=== PATIENT | female | born 1940 | race Caucasian/White ===

== ENCOUNTER 2018-06-25 09:04 | Day surgery (SDC) | payer MEDICARE ==
[~2018-06-25] VITALS: Ht 167.6 cm; Wt 99.7 kg
[~2018-06-25 09:04] MED LIST: ACET-1131; ACYC400T PO; ALLO300T2 PO; AMIO200T40 PO; ANAS1TAB PO; APIX5TAB3 PO; ASCO10007 PO; ASPI-1265 PO; ATRNS; CALC-793 PO; CLOP75TA35 PO; CYAN100097 PO; DIGO125T97 PO; FENO145T36 PO; FEXO-62 PO; FISHOIL PO; FLAX100032 PO; FLUO15CR TOP; FLUT100D2 INH; FLUT16SP26 BOTHNARES; FURO-150 PO; GLUC100017 PO; HYDR-4069 PO; LEVO100T PO; LOSA1TAB39 PO; MAGN400T6 PO; METR500T4 PO; MULT-687 PO; NIAC250C2 PO; NITR0.4T SL; PANT-47 PO; POTA8TAB8 PO; PROP10TA10 PO; ROSU20TA30; SELE200T25 PO; SITA100T11 PO; TRAM50TA2 PO; TURM500C3 PO; UBID10CA9 PO; VERA240C2 PO; folic acid PO; pro air
[2018-06-25] MEDS ORDERED: normal saline 1000ml 1,000 ML IV PRN (09:35)
[2018-06-25 10:45] LABS: ALBUMIN 3.8 G/DL (3.4-5.0); ANION GAP 11 (8-16); BLOOD UREA NITROGEN 56 MG/DL (7-18); BUN/CREATININE RATIO 23.4 (6.6-38.0); CALCIUM 9.4 MG/DL (8.5-10.1); CHLORIDE 103 MMOL/L (99-107); CREATININE 2.39 MG/DL (0.40-0.90); GLUCOSE 127 MG/DL (70-104); POTASSIUM 4.7 MMOL/L (3.5-5.1); SODIUM 141 MMOL/L (135-145); TOTAL CARBON DIOXIDE 27.4 MMOL/L (24-32); eGFR 20 ML/MIN
[2018-06-25 12:40] VITALS: BP 169/64
== END 2018-06-25 12:03 | disposition home or self-care (01) ==
LOC: SSTAY O 09:04
PROVIDERS: ATTEND Radiology Vascular & Interventional Radiology
DX: I70.1 Atherosclerosis of renal artery (principal); Z53.8 Procedure and treatment not carried out for other reasons; I48.92 Unspecified atrial flutter; I25.10 Atherosclerotic heart disease of native coronary artery without angina pectoris; I11.0 Hypertensive heart disease with heart failure; I50.9 Heart failure, unspecified; E11.9 Type 2 diabetes mellitus without complications; E78.5 Hyperlipidemia, unspecified; G47.33 Obstructive sleep apnea (adult) (pediatric); M85.88 Other specified disorders of bone density and structure, other site; E66.9 Obesity, unspecified; M19.90 Unspecified osteoarthritis, unspecified site; K21.9 Gastro-esophageal reflux disease without esophagitis; J44.9 Chronic obstructive pulmonary disease, unspecified; E03.9 Hypothyroidism, unspecified; Z96.653 Presence of artificial knee joint, bilateral; Z90.12 Acquired absence of left breast and nipple; Z68.35 Body mass index [BMI] 35.0-35.9, adult; Z85.3 Personal history of malignant neoplasm of breast; Z85.038 Personal history of other malignant neoplasm of large intestine; Z90.89 Acquired absence of other organs; Z90.710 Acquired absence of both cervix and uterus; Z90.49 Acquired absence of other specified parts of digestive tract; Z88.0 Allergy status to penicillin; Z79.891 Long term (current) use of opiate analgesic; Z79.84 Long term (current) use of oral hypoglycemic drugs; Z79.2 Long term (current) use of antibiotics; Z95.1 Presence of aortocoronary bypass graft; Z86.69 Personal history of other diseases of the nervous system and sense organs; Z95.5 Presence of coronary angioplasty implant and graft; Z87.891 Personal history of nicotine dependence; Z88.8 Allergy status to other drugs, medicaments and biological substances; Z79.899 Other long term (current) drug therapy; Z98.890 Other specified postprocedural states; Z82.49 Family history of ischemic heart disease and other diseases of the circulatory system; Z83.49 Family history of other endocrine, nutritional and metabolic diseases
CPT/HCPCS: 36415; 80048; J7030

== ENCOUNTER 2018-08-25 12:13 | Inpatient (IN) | payer MEDICARE ==
[~2018-08-25] VITALS: Ht 165.1 cm; Wt 97.4 kg
[2018-08-25 12:52] LABS: BASOPHILS % (AUTO) 0.4 % (0-1); EOSINOPHILS # (AUTO) 0.2 X10'3 (0-0.9); EOSINOPHILS % (AUTO) 2.5 % (0-6); HEMATOCRIT 24.7 % (35.0-45.0); HEMOGLOBIN 7.6 g/dl (12.0-16.0); LYMPHOCYTES # (AUTO) 0.7 X10'3 (1.1-4.8); LYMPHOCYTES % (AUTO) 9.8 % (21-51); MEAN CORPUSCULAR HEMOGLOBIN 24.8 PG (27.0-31.0); MEAN CORPUSCULAR HGB CONC 30.7 % (33.0-36.5); MEAN CORPUSCULAR VOLUME 80.7 FL (78-98); MEAN PLATELET VOLUME 8.2 FL (7.4-10.4); MONOCYTES # (AUTO) 0.7 X10'3 (0-0.9); MONOCYTES % (AUTO) 10.3 % (2-12); NEUTROPHILS # (AUTO) 5.4 X10'3 (1.8-7.7); PLATELET COUNT 252 X10'3 (140-440); RED BLOOD COUNT 3.07 X10'6 (4.20-5.60); RED CELL DISTRIBUTION WIDTH 19.4 % (11.5-14.5)
[2018-08-25 13:00] LABS: INR 1.4 INR; PARTIAL THROMBOPLASTIN TIME 30 SECONDS (22-32); PROTHROMBIN TIME 13.8 SECONDS (9.0-12.0)
[2018-08-25 13:02] LABS: ALANINE AMINOTRANSFERASE 38 U/L (12-78); ALBUMIN 3.9 G/DL (3.4-5.0); ALBUMIN/GLOBULIN RATIO 1.1 (1.1-1.5); ALKALINE PHOSPHATASE 27 IU/L (46-116); ANION GAP 14 (8-16); ASPARTATE AMINO TRANSFERASE 52 U/L (10-37); BILIRUBIN,TOTAL 0.4 MG/DL (0.1-1.0); BLOOD UREA NITROGEN 65 MG/DL (7-18); BUN/CREATININE RATIO 20.8 (6.6-38.0); CALCIUM 9.2 MG/DL (8.5-10.1); CHLORIDE 101 MMOL/L (99-107); CREATININE 3.12 MG/DL (0.40-0.90); GLUCOSE 203 MG/DL (70-104); POTASSIUM 5.2 MMOL/L (3.5-5.1); SODIUM 138 MMOL/L (135-145); TOTAL CARBON DIOXIDE 23.1 MMOL/L (24-32); TOTAL PROTEIN 7.4 G/DL (6.4-8.2); eGFR 15 ML/MIN
[2018-08-25] MEDS ORDERED: APIX5TAB3 PO (16:50)
[2018-08-25] MEDS ORDERED: FAMO20TA10 PO (16:50)
[2018-08-25] MEDS ORDERED: INSU100V9 SQ (16:50)
[2018-08-25] MEDS ORDERED: magnesium hydroxide 30ml (MOM) UD suspension PO PRN (17:00)
[2018-08-25] MEDS ORDERED: ondansetron/PF 4mg/2ml inj IV PRN (17:00)
[2018-08-25] MEDS ORDERED: digoxin 125mcg (0.125mg) tablet PO SCH (17:00)
[2018-08-25] MEDS ORDERED: morphine 2 MG/ML inj. syringe IV PRN ×2 (17:00)
[2018-08-25] MEDS ORDERED: propranolol 10mg tablet PO PRN (17:00)
[2018-08-25] MEDS ORDERED: mag hydrox/Alum hydrox/simeth 30ml oral suspension PO PRN (17:00)
[2018-08-25 17:30] LABS: HEMOGLOBIN A1C 5.9 % (4.5-6.2)
[2018-08-25] MEDS: fenofibrate 145mg tablet PO SCH (18:46)
[2018-08-25] MEDS: potassium chloride 8mEq ER tablet PO SCH (20:00)
[2018-08-25] MEDS: BUDESONIDE 0.25 MG/2 ML AMPUL.NEB IH SCH (20:00)
[2018-08-25] MEDS ORDERED: UBIDECARENONE 100 MG PO SCH (20:00)
[2018-08-25] MEDS: hydrALAZINE 25 MG tablet PO SCH (20:26)
[2018-08-25] MEDS: famotidine 20mg tablet PO SCH (20:26)
[2018-08-25] MEDS: apixaban 5mg tablet PO SCH (20:26)
[2018-08-25] MEDS: magnesium oxide 400mg tablet PO SCH (20:26)
[2018-08-25] MEDS: verapamil SR 120mg (sust. release) tab PO SCH (20:27)
[2018-08-25] MEDS: allopurinol 100mg tablet PO SCH (20:28)
[2018-08-25] MEDS ORDERED: INSULIN GLARGINE HUM REC ANLOG 100 UNIT SQ SCH (21:00)
[2018-08-25] MEDS ORDERED: diphenhydrAMINE 25mg capsule PO ONE (22:55)
[2018-08-25] MEDS: acetaminophen 325mg tablet PO PRN (23:04)
[2018-08-26 00:57] LABS: BASOPHILS % (AUTO) 0.5 % (0-1); EOSINOPHILS # (AUTO) 0.1 X10'3 (0-0.9); EOSINOPHILS % (AUTO) 1.3 % (0-6); HEMATOCRIT 24.8 % (35.0-45.0); HEMOGLOBIN 7.8 g/dl (12.0-16.0); LYMPHOCYTES # (AUTO) 0.6 X10'3 (1.1-4.8); MEAN CORPUSCULAR HEMOGLOBIN 25.7 PG (27.0-31.0); MEAN CORPUSCULAR HGB CONC 31.6 % (33.0-36.5); MEAN CORPUSCULAR VOLUME 81.4 FL (78-98); MEAN PLATELET VOLUME 8.2 FL (7.4-10.4); MONOCYTES # (AUTO) 0.8 X10'3 (0-0.9); MONOCYTES % (AUTO) 10.6 % (2-12); NEUTROPHILS # (AUTO) 6.5 X10'3 (1.8-7.7); NEUTROPHILS % (AUTO) 79.6 % (42-75); PLATELET COUNT 236 X10'3 (140-440); RED BLOOD COUNT 3.05 X10'6 (4.20-5.60); RED CELL DISTRIBUTION WIDTH 18.5 % (11.5-14.5)
[2018-08-26 01:14] LABS: ALBUMIN 3.8 G/DL (3.4-5.0); ANION GAP 11 (8-16); BLOOD UREA NITROGEN 63 MG/DL (7-18); BUN/CREATININE RATIO 20.8 (6.6-38.0); CALCIUM 9.3 MG/DL (8.5-10.1); CHLORIDE 102 MMOL/L (99-107); CHOL/HDL RATIO 4.3 (0.00-4.99); CHOLESTEROL 102 MG/DL (0-200); CREATININE 3.03 MG/DL (0.40-0.90); GLUCOSE 221 MG/DL (70-104); HDL CHOLESTEROL 24 MG/DL (35-60); LDL CHOLESTEROL 58 MG/DL (50-100); POTASSIUM 4.7 MMOL/L (3.5-5.1); SODIUM 138 MMOL/L (135-145); TOTAL CARBON DIOXIDE 24.9 MMOL/L (24-32); TRIGLYCERIDES 112 MG/DL (20-135); eGFR 15 ML/MIN
[2018-08-26 05:06] VITALS: BP 186/49
[2018-08-26] MEDS: BUDESONIDE 0.25 MG/2 ML AMPUL.NEB IH SCH ×2 (07:30→19:53)
[2018-08-26] MEDS ORDERED: GLUCOSAMINE SULFATE 1500 MG PO SCH (08:00)
[2018-08-26] MEDS ORDERED: SELENOMETHIONINE 200 MCG PO SCH (08:00)
[2018-08-26] MEDS ORDERED: FLAXSEED OIL 2400 MG PO SCH (08:00)
[2018-08-26] MEDS: atorvastatin 20mg tablet PO SCH (08:04)
[2018-08-26] MEDS: cyanocobalamin 500mcg tablet PO SCH (08:04)
[2018-08-26] MEDS: verapamil SR 120mg (sust. release) tab PO SCH ×2 (08:05→20:08)
[2018-08-26] MEDS: magnesium oxide 400mg tablet PO SCH ×2 (08:05→20:08)
[2018-08-26] MEDS: famotidine 20mg tablet PO SCH ×2 (08:05→20:08)
[2018-08-26] MEDS: cetirizine 10mg tablet PO SCH (08:05)
[2018-08-26] MEDS: folic acid 1mg tablet PO SCH (08:05)
[2018-08-26] MEDS: apixaban 5mg tablet PO SCH ×2 (08:06→20:08)
[2018-08-26] MEDS: potassium chloride 8mEq ER tablet PO SCH ×2 (08:06→20:08)
[2018-08-26] MEDS: clopidogrel 75mg tablet PO SCH (08:06)
[2018-08-26] MEDS: levoTHYROXINE 100mcg tablet PO SCH (08:07)
[2018-08-26] MEDS: allopurinol 100mg tablet PO SCH ×2 (08:07→20:08)
[2018-08-26] MEDS: hydrALAZINE 25 MG tablet PO SCH ×3 (08:07→20:08)
[2018-08-26] MEDS: amiodarone 200mg tablet PO SCH (08:08)
[2018-08-26] MEDS: anastrozole 1 MG tablet PO SCH (08:09)
[2018-08-26] MEDS: calcium carbonate/vitamin D3 tablet PO SCH (08:11)
[2018-08-26 08:42] VITALS: BP 198/60
[2018-08-26] MEDS: HYDROcodone/acetaminophen 5mg/325mg tablet PO PRN (10:07)
[2018-08-26] MEDS: furosemide 40mg/4ml inj IV SCH (10:50)
[2018-08-26 11:00] VITALS: BP 179/46
[2018-08-26] MEDS ORDERED: diphenhydrAMINE 25mg capsule PO PRN (12:45)
[2018-08-26 15:00] VITALS: BP 179/43
[2018-08-26 19:00] VITALS: BP 174/47
[2018-08-26 23:00] VITALS: BP 163/34
[2018-08-27] VITALS (17 sets, daily range): BP systolic 112–189; BP diastolic 40–61
[2018-08-27 06:11] LABS: BASOPHILS % (AUTO) 0.3 % (0-1); EOSINOPHILS # (AUTO) 0.2 X10'3 (0-0.9); LYMPHOCYTES # (AUTO) 0.7 X10'3 (1.1-4.8); LYMPHOCYTES % (AUTO) 13.7 % (21-51); MEAN CORPUSCULAR HGB CONC 30.8 % (33.0-36.5); MEAN CORPUSCULAR VOLUME 81.2 FL (78-98); MEAN PLATELET VOLUME 8.6 FL (7.4-10.4); MONOCYTES # (AUTO) 0.7 X10'3 (0-0.9); MONOCYTES % (AUTO) 12.5 % (2-12); NEUTROPHILS # (AUTO) 3.8 X10'3 (1.8-7.7); NEUTROPHILS % (AUTO) 70.5 % (42-75); PLATELET COUNT 200 X10'3 (140-440); RED BLOOD COUNT 2.65 X10'6 (4.20-5.60); RED CELL DISTRIBUTION WIDTH 18.8 % (11.5-14.5); WHITE BLOOD COUNT 5.4 X10'3 (4.5-11.0)
[2018-08-27 06:24] LABS: ALBUMIN 3.3 G/DL (3.4-5.0); ANION GAP 12 (8-16); BLOOD UREA NITROGEN 60 MG/DL (7-18); BUN/CREATININE RATIO 23.1 (6.6-38.0); CALCIUM 8.9 MG/DL (8.5-10.1); CHLORIDE 103 MMOL/L (99-107); GLUCOSE 137 MG/DL (70-104); POTASSIUM 4.5 MMOL/L (3.5-5.1); SODIUM 139 MMOL/L (135-145); TOTAL CARBON DIOXIDE 23.8 MMOL/L (24-32); eGFR 18 ML/MIN
[2018-08-27 06:34] LABS: HEMATOCRIT 21.5 % (35.0-45.0); HEMOGLOBIN 6.6 g/dl (12.0-16.0)
[2018-08-27] MEDS: fenofibrate 145mg tablet PO SCH (08:22)
[2018-08-27] MEDS: clopidogrel 75mg tablet PO SCH (08:22)
[2018-08-27] MEDS: furosemide 40mg/4ml inj IV SCH (08:22)
[2018-08-27] MEDS: verapamil SR 120mg (sust. release) tab PO SCH ×2 (08:22→19:49)
[2018-08-27] MEDS: calcium carbonate/vitamin D3 tablet PO SCH (08:23)
[2018-08-27] MEDS: hydrALAZINE 25 MG tablet PO SCH ×3 (08:23→20:57)
[2018-08-27] MEDS: levoTHYROXINE 100mcg tablet PO SCH (08:24)
[2018-08-27] MEDS: cyanocobalamin 500mcg tablet PO SCH (08:24)
[2018-08-27] MEDS: folic acid 1mg tablet PO SCH (08:24)
[2018-08-27] MEDS: cetirizine 10mg tablet PO SCH (08:24)
[2018-08-27] MEDS: amiodarone 200mg tablet PO SCH (08:25)
[2018-08-27] MEDS: allopurinol 100mg tablet PO SCH ×2 (08:25→19:48)
[2018-08-27] MEDS: famotidine 20mg tablet PO SCH ×2 (08:25→19:48)
[2018-08-27] MEDS: atorvastatin 20mg tablet PO SCH (08:25)
[2018-08-27] MEDS: potassium chloride 8mEq ER tablet PO SCH ×2 (08:26→19:48)
[2018-08-27] MEDS: magnesium oxide 400mg tablet PO SCH ×2 (08:26→19:48)
[2018-08-27] MEDS: anastrozole 1 MG tablet PO SCH (08:28)
[2018-08-27] MEDS ORDERED: acetaminophen 325mg tablet PO ONE (10:25)
[2018-08-27] MEDS: BUDESONIDE 0.25 MG/2 ML AMPUL.NEB IH SCH ×2 (10:52→20:36)
[2018-08-27 12:01] LABS: OCCULT BLOOD STOOL POSITIVE (Neg)
[2018-08-27] MEDS ORDERED: magnesium Cl slow-release 64mg tablet PO PRN (18:55)
[2018-08-27] MEDS ORDERED: magnesium 4gm in 100ml NS 100 ML IV PRN (18:55)
[2018-08-27] MEDS: HYDROcodone/acetaminophen 5mg/325mg tablet PO PRN (19:49)
[2018-08-27] MEDS ORDERED: dextrose 50%-water 50ml dispensing syringe IV PRN ×2 (21:30)
[2018-08-27] MEDS ORDERED: MESSAGE TO PHARMACY PO ONE (21:30)
[2018-08-27] MEDS ORDERED: dextrose ORAL solution 15 GM/59 ML bottle PO PRN ×2 (21:30)
[2018-08-27] MEDS ORDERED: glucagon, human recombinant 1mg kit SUBCUT PRN (21:30)
[2018-08-27] MEDS: insulin glargine (Lantus) pen - multi-dose SQ SCH (22:11)
[2018-08-27 22:12] LABS: HEMOGLOBIN 8.4 g/dl (12.0-16.0); MEAN CORPUSCULAR HGB CONC 31.1 % (33.0-36.5); MEAN CORPUSCULAR VOLUME 80.6 FL (78-98); MEAN PLATELET VOLUME 8.5 FL (7.4-10.4); PLATELET COUNT 207 X10'3 (140-440); RED BLOOD COUNT 3.35 X10'6 (4.20-5.60); RED CELL DISTRIBUTION WIDTH 19.7 % (11.5-14.5); WHITE BLOOD COUNT 5.9 X10'3 (4.5-11.0)
[2018-08-28 03:00] VITALS: BP 157/50
[2018-08-28 07:00] VITALS: BP 181/53
[2018-08-28 07:22] LABS: BASOPHILS % (AUTO) 0.6 % (0-1); EOSINOPHILS # (AUTO) 0.2 X10'3 (0-0.9); EOSINOPHILS % (AUTO) 3.8 % (0-6); HEMATOCRIT 28.3 % (35.0-45.0); HEMOGLOBIN 8.7 g/dl (12.0-16.0); LYMPHOCYTES # (AUTO) 0.8 X10'3 (1.1-4.8); LYMPHOCYTES % (AUTO) 13.9 % (21-51); MEAN CORPUSCULAR HEMOGLOBIN 24.9 PG (27.0-31.0); MEAN CORPUSCULAR HGB CONC 30.9 % (33.0-36.5); MEAN CORPUSCULAR VOLUME 80.8 FL (78-98); MEAN PLATELET VOLUME 8.5 FL (7.4-10.4); MONOCYTES # (AUTO) 0.7 X10'3 (0-0.9); MONOCYTES % (AUTO) 11.3 % (2-12); NEUTROPHILS # (AUTO) 4.3 X10'3 (1.8-7.7); NEUTROPHILS % (AUTO) 70.4 % (42-75); PLATELET COUNT 223 X10'3 (140-440); RED BLOOD COUNT 3.51 X10'6 (4.20-5.60); RED CELL DISTRIBUTION WIDTH 19.6 % (11.5-14.5); WHITE BLOOD COUNT 6.1 X10'3 (4.5-11.0)
[2018-08-28] MEDS: furosemide 40mg/4ml inj IV SCH (07:31)
[2018-08-28 07:32] LABS: ALBUMIN 3.6 G/DL (3.4-5.0); ANION GAP 8 (8-16); BLOOD UREA NITROGEN 56 MG/DL (7-18); BUN/CREATININE RATIO 21.1 (6.6-38.0); CALCIUM 9.2 MG/DL (8.5-10.1); CHLORIDE 102 MMOL/L (99-107); CREATININE 2.66 MG/DL (0.40-0.90); GLUCOSE 134 MG/DL (70-104); MAGNESIUM 2.3 MG/DL (1.5-2.4); POTASSIUM 4.2 MMOL/L (3.5-5.1); SODIUM 139 MMOL/L (135-145); TOTAL CARBON DIOXIDE 29.2 MMOL/L (24-32); eGFR 17 ML/MIN
[2018-08-28] MEDS: clopidogrel 75mg tablet PO SCH (07:32)
[2018-08-28] MEDS: atorvastatin 20mg tablet PO SCH (07:32)
[2018-08-28] MEDS: hydrALAZINE 25 MG tablet PO SCH ×3 (07:35→20:50)
[2018-08-28] MEDS: loratadine 10mg tablet PO SCH (07:35)
[2018-08-28] MEDS: cyanocobalamin 500mcg tablet PO SCH (07:36)
[2018-08-28] MEDS: cetirizine 10mg tablet PO SCH (07:36)
[2018-08-28] MEDS: levoTHYROXINE 100mcg tablet PO SCH (07:36)
[2018-08-28] MEDS: verapamil SR 120mg (sust. release) tab PO SCH ×2 (07:36→20:51)
[2018-08-28] MEDS: famotidine 20mg tablet PO SCH ×2 (07:37→20:51)
[2018-08-28] MEDS: fenofibrate 145mg tablet PO SCH (07:37)
[2018-08-28] MEDS: allopurinol 100mg tablet PO SCH ×2 (07:37→20:50)
[2018-08-28] MEDS: amiodarone 200mg tablet PO SCH (07:37)
[2018-08-28] MEDS: folic acid 1mg tablet PO SCH (07:37)
[2018-08-28] MEDS: magnesium oxide 400mg tablet PO SCH ×2 (07:38→20:50)
[2018-08-28] MEDS: potassium chloride 8mEq ER tablet PO SCH ×2 (07:38→20:50)
[2018-08-28] MEDS: calcium carbonate/vitamin D3 tablet PO SCH (07:38)
[2018-08-28] MEDS: anastrozole 1 MG tablet PO SCH (07:44)
[2018-08-28] MEDS: BUDESONIDE 0.25 MG/2 ML AMPUL.NEB IH SCH ×2 (08:59→19:12)
[2018-08-28 13:55] VITALS: BP 145/30
[2018-08-28] MEDS: insulin Lispro (HumaLOG) vial - multi-dose SQ SCH ×2 (14:38→19:31)
[2018-08-28 15:33] VITALS: BP 142/33
[2018-08-28 18:00] VITALS: BP 178/42
[2018-08-28 22:00] VITALS: BP 174/51
[2018-08-28] MEDS: insulin glargine (Lantus) pen - multi-dose SQ SCH (22:21)
[2018-08-29 02:00] VITALS: BP 170/76
[2018-08-29] MEDS: acetaminophen 325mg tablet PO PRN (04:53)
[2018-08-29 05:56] LABS: BASOPHILS % (AUTO) 0.3 % (0-1); EOSINOPHILS # (AUTO) 0.2 X10'3 (0-0.9); EOSINOPHILS % (AUTO) 3.3 % (0-6); HEMATOCRIT 29.1 % (35.0-45.0); HEMOGLOBIN 8.9 g/dl (12.0-16.0); LYMPHOCYTES # (AUTO) 0.7 X10'3 (1.1-4.8); LYMPHOCYTES % (AUTO) 11.5 % (21-51); MEAN CORPUSCULAR HEMOGLOBIN 24.9 PG (27.0-31.0); MEAN CORPUSCULAR HGB CONC 30.7 % (33.0-36.5); MEAN CORPUSCULAR VOLUME 81.1 FL (78-98); MEAN PLATELET VOLUME 8.5 FL (7.4-10.4); MONOCYTES # (AUTO) 0.8 X10'3 (0-0.9); MONOCYTES % (AUTO) 12.6 % (2-12); NEUTROPHILS # (AUTO) 4.5 X10'3 (1.8-7.7); NEUTROPHILS % (AUTO) 72.3 % (42-75); PLATELET COUNT 224 X10'3 (140-440); RED BLOOD COUNT 3.59 X10'6 (4.20-5.60); RED CELL DISTRIBUTION WIDTH 19.9 % (11.5-14.5); WHITE BLOOD COUNT 6.2 X10'3 (4.5-11.0)
[2018-08-29 06:27] LABS: ALBUMIN 3.7 G/DL (3.4-5.0); ANION GAP 11 (8-16); BLOOD UREA NITROGEN 55 MG/DL (7-18); BUN/CREATININE RATIO 21.5 (6.6-38.0); CALCIUM 9.2 MG/DL (8.5-10.1); CHLORIDE 101 MMOL/L (99-107); CREATININE 2.56 MG/DL (0.40-0.90); GLUCOSE 167 MG/DL (70-104); MAGNESIUM 2.3 MG/DL (1.5-2.4); POTASSIUM 4.2 MMOL/L (3.5-5.1); SODIUM 139 MMOL/L (135-145); TOTAL CARBON DIOXIDE 27.2 MMOL/L (24-32); eGFR 18 ML/MIN
[2018-08-29 07:00] VITALS: BP 194/61
[2018-08-29] MEDS: folic acid 1mg tablet PO SCH (07:37)
[2018-08-29] MEDS: amiodarone 200mg tablet PO SCH (07:38)
[2018-08-29] MEDS: famotidine 20mg tablet PO SCH (07:38)
[2018-08-29] MEDS: verapamil SR 120mg (sust. release) tab PO SCH (07:38)
[2018-08-29] MEDS: potassium chloride 8mEq ER tablet PO SCH (07:38)
[2018-08-29] MEDS: atorvastatin 20mg tablet PO SCH (07:38)
[2018-08-29] MEDS: magnesium oxide 400mg tablet PO SCH (07:38)
[2018-08-29] MEDS: levoTHYROXINE 100mcg tablet PO SCH (07:38)
[2018-08-29] MEDS: calcium carbonate/vitamin D3 tablet PO SCH (07:38)
[2018-08-29] MEDS: allopurinol 100mg tablet PO SCH (07:39)
[2018-08-29] MEDS: hydrALAZINE 25 MG tablet PO SCH ×2 (07:39→12:16)
[2018-08-29] MEDS: fenofibrate 145mg tablet PO SCH (07:39)
[2018-08-29] MEDS: cyanocobalamin 500mcg tablet PO SCH (07:39)
[2018-08-29] MEDS: loratadine 10mg tablet PO SCH (07:39)
[2018-08-29] MEDS: furosemide 40mg/4ml inj IV SCH (07:40)
[2018-08-29] MEDS: anastrozole 1 MG tablet PO SCH (07:40)
[2018-08-29] MEDS: cetirizine 10mg tablet PO SCH (07:41)
[2018-08-29] MEDS: insulin Lispro (HumaLOG) vial - multi-dose SQ SCH ×2 (09:10→13:08)
[2018-08-29] MEDS: HYDROcodone/acetaminophen 5mg/325mg tablet PO PRN (09:48)
[2018-08-29] MEDS: BUDESONIDE 0.25 MG/2 ML AMPUL.NEB IH SCH (10:17)
[2018-08-29] MEDS ORDERED: furosemide 20 MG/2 ML vial IV ONE (11:25)
[2018-08-29 11:42] VITALS: BP 188/51
[2018-08-29] MEDS ORDERED: PANT-47 PO (13:27)
== END 2018-08-29 15:40 | disposition home health service (06) | DRG 682 ==
LOC: ER 12:13 → ED HOLD 16:59 → EDBEDREQ 08-26 02:29 → PCU 3S 08-26 04:34
PROVIDERS: ADMIT Internal Medicine; ATTEND Family Medicine
PROC: 5A09357 Assistance with Respiratory Ventilation, Less than 24 Consecutive Hours, Continuous Positive Airway Pressure (ICD-10-PCS; 2018-08-26)
PROC: 30233N1 Transfusion of Nonautologous Red Blood Cells into Peripheral Vein, Percutaneous Approach (ICD-10-PCS; principal; 2018-08-27)
PROC: 5A09357 Assistance with Respiratory Ventilation, Less than 24 Consecutive Hours, Continuous Positive Airway Pressure (ICD-10-PCS; 2018-08-27)
PROC: 5A09357 Assistance with Respiratory Ventilation, Less than 24 Consecutive Hours, Continuous Positive Airway Pressure (ICD-10-PCS; 2018-08-28)
DX: N17.9 Acute kidney failure, unspecified (principal); I50.43 Acute on chronic combined systolic (congestive) and diastolic (congestive) heart failure; I13.0 Hypertensive heart and chronic kidney disease with heart failure and stage 1 through stage 4 chronic kidney disease, or unspecified chronic kidney disease; J96.11 Chronic respiratory failure with hypoxia; I48.92 Unspecified atrial flutter; D64.9 Anemia, unspecified; E03.9 Hypothyroidism, unspecified; E11.22 Type 2 diabetes mellitus with diabetic chronic kidney disease; E78.5 Hyperlipidemia, unspecified; J44.9 Chronic obstructive pulmonary disease, unspecified; I08.1 Rheumatic disorders of both mitral and tricuspid valves; M10.9 Gout, unspecified; K21.9 Gastro-esophageal reflux disease without esophagitis; G47.33 Obstructive sleep apnea (adult) (pediatric); N18.4 Chronic kidney disease, stage 4 (severe); R79.89 Other specified abnormal findings of blood chemistry; Z96.653 Presence of artificial knee joint, bilateral; I25.10 Atherosclerotic heart disease of native coronary artery without angina pectoris; I48.0 Paroxysmal atrial fibrillation; Z95.5 Presence of coronary angioplasty implant and graft; Z95.1 Presence of aortocoronary bypass graft; Z90.710 Acquired absence of both cervix and uterus; Z90.10 Acquired absence of unspecified breast and nipple; Z90.49 Acquired absence of other specified parts of digestive tract; Z88.0 Allergy status to penicillin; Z88.8 Allergy status to other drugs, medicaments and biological substances; Z88.1 Allergy status to other antibiotic agents; Z79.01 Long term (current) use of anticoagulants; Z79.890 Hormone replacement therapy; Z79.4 Long term (current) use of insulin; Z85.3 Personal history of malignant neoplasm of breast; Z83.3 Family history of diabetes mellitus
CPT/HCPCS: 36415; 71045; 80048; 80053; 80061; 80162; 82272; 82948; 83036; 83735; 83880; 84443; 84484; 85025; 85027; 85610; 85730; 86885; 86900; 86901; 86920; 87070; 93005; 93306; 94640; 94660; 94760; 99285; G0378; J1815; J1940; P9016; Q0163

== ENCOUNTER 2018-12-06 13:11 | Inpatient (IN) | payer MEDICARE | END 2018-12-09 16:59 | disposition home or self-care (01) | LOC: ER 13:11 → ED HOLD 16:19 → ORTHO 4S 22:10 | DX: A41.9 Sepsis, unspecified organism (principal); J18.1 Lobar pneumonia, unspecified organism ==

== ENCOUNTER 2019-03-07 14:10 | Outpatient (CLI) | payer MEDICARE ==
[~2019-03-07 14:10] MED LIST changes: -ACET-1131; +ACET-812 PO; +ACET600C5 PO; -ACYC400T PO; +ALLO100T PO; -ALLO300T2 PO; -ANAS1TAB PO; +ANAS1TAB10 PO; -APIX5TAB3 PO; -ASCO10007 PO; +ASPI-1 PO; -ASPI-1265 PO; +CALC-1197 PO; -CALC-793 PO; +CHOL10002 PO; +CLOP75TA15 PO; -CLOP75TA35 PO; -CYAN100097 PO; -DIGO125T97 PO; +FERR325T28 PO; -FEXO-62 PO; +FEXO180T94 PO; -FISHOIL PO; -FLAX100032 PO; -FLUO15CR TOP; +FLUO15OI15 TOP; -FLUT16SP26 BOTHNARES; -GLUC100017 PO; -HYDR-4069 PO; +HYDR100T27 PO; +INSU100V9 SQ; +LACT1CAP65 PO; -LOSA1TAB39 PO; -MAGN400T6 PO; -METR500T4 PO; -MULT-687 PO; +NIA500ERT PO; -NIAC250C2 PO; -NITR0.4T SL; +NITR0.4T51 SL; +POTA8CAP9 PO; -POTA8TAB8 PO; -ROSU20TA30; +ROSU40TA PO; -SELE200T25 PO; -SITA100T11 PO; -TURM500C3 PO; -UBID10CA9 PO; +UBID1CAP54 PO; -VERA240C2 PO; +VERA240T PO; +VITC500T PO; -folic acid PO; -pro air
[2019-03-07] MEDS ORDERED: FURO-150 PO (23:00)
[2019-03-07] MEDS ORDERED: POTA10TA19 PO (23:00)
== END 2019-03-07 23:59 | disposition home or self-care (01) ==
LOC: VAS 14:10
PROVIDERS: ATTEND Family Medicine
DX: I72.8 Aneurysm of other specified arteries (principal); Q27.30 Arteriovenous malformation, site unspecified; Z86.79 Personal history of other diseases of the circulatory system
CPT/HCPCS: 93926

== ENCOUNTER 2019-03-30 02:28 | Outpatient (CLI) | payer MEDICARE ==
[~2019-03-30 02:28] MED LIST changes: +POTA10TA19 PO; -POTA8CAP9 PO
== END 2019-03-30 23:59 | disposition home or self-care (01) ==
LOC: DIABETIC 02:28
PROVIDERS: ATTEND Family Medicine
DX: E11.65 Type 2 diabetes mellitus with hyperglycemia (principal); Z79.4 Long term (current) use of insulin; Z79.899 Other long term (current) drug therapy; Z88.2 Allergy status to sulfonamides; Z88.1 Allergy status to other antibiotic agents; Z88.8 Allergy status to other drugs, medicaments and biological substances
CPT/HCPCS: G0108

== ENCOUNTER 2019-05-20 18:20 | Inpatient (IN) | payer MEDICARE ==
[~2019-05-20] VITALS: Ht 167.6 cm; Wt 82.8 kg
[~2019-05-20 18:20] MED LIST changes: -AMIO200T40 PO; +AMIO200T61 PO
[2019-05-20 18:49] LABS: BASOPHILS # (AUTO) 0.1 X10'3 (0-0.2); BASOPHILS % (AUTO) 0.7 % (0-1); EOSINOPHILS % (AUTO) 0.2 % (0-6); HEMOGLOBIN 11.2 g/dl (12.0-16.0); LYMPHOCYTES # (AUTO) 0.6 X10'3 (1.1-4.8); LYMPHOCYTES % (AUTO) 7.1 % (21-51); MEAN CORPUSCULAR HEMOGLOBIN 32.4 PG (27.0-31.0); MEAN CORPUSCULAR VOLUME 98.3 FL (78-98); MEAN PLATELET VOLUME 9.4 FL (7.4-10.4); MONOCYTES % (AUTO) 11.2 % (2-12); NEUTROPHILS % (AUTO) 80.8 % (42-75); PLATELET COUNT 169 X10'3 (140-440); RED BLOOD COUNT 3.46 X10'6 (4.20-5.60); RED CELL DISTRIBUTION WIDTH 17.1 % (11.5-14.5); WHITE BLOOD COUNT 8.7 X10'3 (4.5-11.0)
[2019-05-20 19:08] LABS: PARTIAL THROMBOPLASTIN TIME 29 SECONDS (22-32)
[2019-05-20 19:12] LABS: ALANINE AMINOTRANSFERASE 27 U/L (12-78); ALBUMIN 3.8 G/DL (3.4-5.0); ALBUMIN/GLOBULIN RATIO 1.1 (1.1-1.5); ALKALINE PHOSPHATASE 31 IU/L (46-116); ANION GAP 14 (8-16); ASPARTATE AMINO TRANSFERASE 36 U/L (10-37); BILIRUBIN,TOTAL 0.6 MG/DL (0.1-1.0); BLOOD UREA NITROGEN 86 MG/DL (7-18); CALCIUM 9.3 MG/DL (8.5-10.1); CHLORIDE 100 MMOL/L (99-107); CREATININE 4.78 MG/DL (0.40-0.90); GLUCOSE 130 MG/DL (70-104); POTASSIUM 5.4 MMOL/L (3.5-5.1); SODIUM 140 MMOL/L (135-145); TOTAL CARBON DIOXIDE 26.2 MMOL/L (24-32); TOTAL PROTEIN 7.3 G/DL (6.4-8.2); eGFR 9 ML/MIN
[2019-05-20] MEDS ORDERED: aspirin 325mg tablet PO ONE (19:20)
[2019-05-20] MEDS ORDERED: normal saline 1000ML IV soln IVB ONE ×2 (19:25→19:45)
--- NOTE | 2019-05-20 19:41 | NUR ---
CLARIFIED NS BOLUS ORDER WITH [facility] CONCERNING PT HX OF CHF. OHFLS NEW ORDER 500 ML NS BOLUS
[2019-05-20] MEDS ORDERED: traMADol 50MG tablet PO ONE (20:55)
[2019-05-20] MEDS ORDERED: acetaminophen 325mg tablet PO ONE (20:55)
[2019-05-20] MEDS ORDERED: acetaminophen 650mg rectal suppository RC PRN (21:25)
[2019-05-20] MEDS ORDERED: acetaminophen 325mg tablet PO PRN (21:25)
[2019-05-20] MEDS ORDERED: MESSAGE TO PHARMACY PO ONE (21:25)
[2019-05-20] MEDS ORDERED: dextrose 50%-water 50ml dispensing syringe IV PRN ×2 (21:25)
[2019-05-20] MEDS ORDERED: glucagon, human recombinant 1mg kit SUBCUT PRN (21:25)
[2019-05-20] MEDS ORDERED: HYDROmorphone inj. 0.5 MG/0.5 ML DISP.SYRIN IV PRN (21:25)
[2019-05-20] MEDS ORDERED: dextrose ORAL solution 15 GM/59 ML bottle PO PRN (21:25)
--- NOTE | 2019-05-20 21:25 | NUR ---
PT REQUESTING WATER AND CRACKERS VERIFIED WITH DR PHAM THAT PT OK TO EAT AND DRINK , PT RECEIVED WATER AND SALTINE CRACKERS AT THIS TIME.
--- NOTE | 2019-05-20 21:28 | NUR ---
belongings: glasses, blouse, undies, shorts, slippers brown tote bag
[2019-05-20] MEDS ORDERED: potassium Cl 20 mEq SR tablet PO PRN (21:45)
[2019-05-20] MEDS ORDERED: insulin glargine (Lantus) pen - multi-dose SQ SCH (21:45)
[2019-05-20] MEDS ORDERED: magnesium Cl slow-release 64mg tablet PO PRN (21:45)
[2019-05-20 23:00] VITALS: BP_SYST 159; BP_SYST 161; BP_DIAS 47; BP_DIAS 48
--- NOTE | 2019-05-20 23:07 | NUR ---
Patient in room PCU 3028. I have received report from Jane CROOK and had the opportunity to ask questions and assume patient care.
[2019-05-20] MEDS: furosemide inj 100 MG in normal saline 100ml IV soln 90 ML IV SCH (23:44)
[2019-05-21] VITALS (9 sets, daily range): BP systolic 153–182; BP diastolic 49–56
[2019-05-21] MEDS: hydrALAZINE 25 MG tablet PO SCH ×3 (00:16→20:56)
[2019-05-21] MEDS: acetaminophen 325mg/10.15ml oral unit dose solution PO SCH ×4 (01:30→22:32)
[2019-05-21 02:02] LABS: BASOPHILS % (AUTO) 0.5 % (0-1); EOSINOPHILS % (AUTO) 0.3 % (0-6); HEMATOCRIT 32.6 % (35.0-45.0); HEMOGLOBIN 10.8 g/dl (12.0-16.0); LYMPHOCYTES # (AUTO) 0.5 X10'3 (1.1-4.8); LYMPHOCYTES % (AUTO) 6.5 % (21-51); MEAN CORPUSCULAR HEMOGLOBIN 32.6 PG (27.0-31.0); MEAN CORPUSCULAR HGB CONC 33.1 g/dL (33.0-36.5); MEAN CORPUSCULAR VOLUME 98.5 FL (78-98); MONOCYTES # (AUTO) 0.9 X10'3 (0-0.9); MONOCYTES % (AUTO) 11.5 % (2-12); NEUTROPHILS # (AUTO) 6.5 X10'3 (1.8-7.7); NEUTROPHILS % (AUTO) 81.2 % (42-75); PLATELET COUNT 151 X10'3 (140-440); RED BLOOD COUNT 3.31 X10'6 (4.20-5.60)
[2019-05-21 02:13] LABS: PARTIAL THROMBOPLASTIN TIME 30 SECONDS (22-32)
[2019-05-21 02:15] LABS: ALBUMIN 3.6 G/DL (3.4-5.0); ANION GAP 12 (8-16); BLOOD UREA NITROGEN 89 MG/DL (7-18); BUN/CREATININE RATIO 19.5 (6.6-38.0); CHLORIDE 102 MMOL/L (99-107); CREATININE 4.57 MG/DL (0.40-0.90); GLUCOSE 154 MG/DL (70-104); MAGNESIUM 2.4 MG/DL (1.5-2.4); PHOSPHORUS 4.3 MG/DL (2.3-4.5); POTASSIUM 4.8 MMOL/L (3.5-5.1); SODIUM 140 MMOL/L (135-145); TOTAL CARBON DIOXIDE 25.6 MMOL/L (24-32); eGFR 9 ML/MIN
--- NOTE | 2019-05-21 06:44 | NUR ---
Problems reprioritized. Patient report given, questions answered & plan of care reviewed with Radha CROOK.
[2019-05-21] MEDS: furosemide inj 100 MG in normal saline 100ml IV soln 90 ML IV SCH ×3 (07:25→20:33)
[2019-05-21 07:26] LABS: ALBUMIN 3.5 G/DL (3.4-5.0); ANION GAP 10 (8-16); BLOOD UREA NITROGEN 86 MG/DL (7-18); BUN/CREATININE RATIO 18.3 (6.6-38.0); CALCIUM 8.9 MG/DL (8.5-10.1); CHLORIDE 103 MMOL/L (99-107); CREATININE 4.71 MG/DL (0.40-0.90); GLUCOSE 139 MG/DL (70-104); MAGNESIUM 2.5 MG/DL (1.5-2.4); PHOSPHORUS 4.6 MG/DL (2.3-4.5); POTASSIUM 4.1 MMOL/L (3.5-5.1); SODIUM 141 MMOL/L (135-145); TOTAL CARBON DIOXIDE 27.6 MMOL/L (24-32); eGFR 9 ML/MIN
[2019-05-21] MEDS: heparin, porcine 5000 units/ml vial SQ SCH ×2 (08:00→20:55)
[2019-05-21] MEDS: propranolol 10mg tablet PO SCH ×2 (08:00→20:53)
[2019-05-21] MEDS: verapamil SR 120mg (sust. release) tab PO SCH ×2 (08:00→20:51)
[2019-05-21] MEDS ORDERED: anastrozole 1 MG tablet PO SCH (08:00)
[2019-05-21] MEDS ORDERED: non-formulary drug (Ubidecarenone/Vit E Acetate (Co Q-10 100 Mg Softgel) 1 EACH) PO SCH (08:00)
[2019-05-21] MEDS: ipratropium 0.06% nasal spray 15ml NS SCH (08:00)
[2019-05-21] MEDS: traMADol 50MG tablet PO SCH ×2 (08:00→22:31)
[2019-05-21] MEDS: atorvastatin 20mg tablet PO SCH (08:47)
[2019-05-21] MEDS: lactobacillus rhamnosus 10,000 MMU CELLS/CAPSULE PO SCH (08:48)
[2019-05-21] MEDS: ferrous sulfate 325mg tablet PO SCH (08:48)
[2019-05-21] MEDS: amiodarone 200mg tablet PO SCH (08:48)
[2019-05-21] MEDS: levoTHYROXINE 100mcg tablet PO SCH (08:49)
[2019-05-21] MEDS: ascorbic acid 500mg tablet PO SCH ×2 (08:49→20:52)
[2019-05-21] MEDS: loratadine 10mg tablet PO SCH (08:50)
[2019-05-21] MEDS: fenofibrate 145mg tablet PO SCH (08:50)
[2019-05-21] MEDS: calcium carbonate/vitamin D3 tablet PO SCH (08:50)
[2019-05-21] MEDS: docusate sod 100mg capsule PO SCH ×2 (08:51→20:00)
[2019-05-21] MEDS: aspirin 325mg tablet PO SCH (08:52)
[2019-05-21] MEDS: clopidogrel 75mg tablet PO SCH (08:52)
[2019-05-21] MEDS: pantoprazole 40mg Tablet.DR PO SCH (08:52)
[2019-05-21] MEDS: vitamin D (cholecalciferol) 1,000 unit tablet PO SCH (08:55)
[2019-05-21] MEDS: niacin 500mg ER (Niaspan) tablet PO SCH ×2 (09:04→20:53)
[2019-05-21] MEDS: acetylcysteine oral sol. 200 MG/ML 4ml vial PO SCH ×2 (09:09→20:53)
[2019-05-21] MEDS: fluocinonide 0.05% 15gm ointment TP SCH ×2 (09:10→20:54)
--- NOTE | 2019-05-21 10:22 | NUR ---
DM consult: Patient's A1c is 5.8; DM ed not warranted at this time. Will continue to follow. Addendum: 05/21/19 at [address] Amended: Links added.
[2019-05-21 10:48] LABS: ALBUMIN 3.3 G/DL (3.4-5.0); ANION GAP 11 (8-16); BLOOD UREA NITROGEN 85 MG/DL (7-18); BUN/CREATININE RATIO 18.7 (6.6-38.0); CALCIUM 8.6 MG/DL (8.5-10.1); CHLORIDE 101 MMOL/L (99-107); CREATININE 4.54 MG/DL (0.40-0.90); GLUCOSE 216 MG/DL (70-104); MAGNESIUM 2.5 MG/DL (1.5-2.4); PHOSPHORUS 4.7 MG/DL (2.3-4.5); POTASSIUM 3.9 MMOL/L (3.5-5.1); SODIUM 141 MMOL/L (135-145); TOTAL CARBON DIOXIDE 28.6 MMOL/L (24-32); eGFR 9 ML/MIN
[2019-05-21] MEDS: budesonide 0.5mg/2ml UD nebule IH SCH ×2 (11:24→19:27)
[2019-05-21] MEDS: metolazone 2.5mg tablet PO SCH ×2 (13:20→20:53)
[2019-05-21 16:25] LABS: ALBUMIN 3.6 G/DL (3.4-5.0); ANION GAP 13 (8-16); BLOOD UREA NITROGEN 87 MG/DL (7-18); BUN/CREATININE RATIO 18.8 (6.6-38.0); CALCIUM 9.1 MG/DL (8.5-10.1); CHLORIDE 99 MMOL/L (99-107); CREATININE 4.62 MG/DL (0.40-0.90); GLUCOSE 222 MG/DL (70-104); MAGNESIUM 2.6 MG/DL (1.5-2.4); PHOSPHORUS 5.1 MG/DL (2.3-4.5); SODIUM 141 MMOL/L (135-145); eGFR 9 ML/MIN
--- NOTE | 2019-05-21 18:35 | NUR ---
Patient in room PCU 3028. I have received report from Diane RN and had the opportunity to ask questions and assume patient care.
[2019-05-21] MEDS: allopurinol 100mg tablet PO SCH (20:54)
[2019-05-21] MEDS ORDERED: insulin glargine (Lantus) pen - multi-dose SQ SCH (21:00)
[2019-05-21 22:16] LABS: ALBUMIN 3.4 G/DL (3.4-5.0); ANION GAP 13 (8-16); BLOOD UREA NITROGEN 86 MG/DL (7-18); BUN/CREATININE RATIO 19.9 (6.6-38.0); CALCIUM 9.2 MG/DL (8.5-10.1); CHLORIDE 99 MMOL/L (99-107); CREATININE 4.32 MG/DL (0.40-0.90); GLUCOSE 201 MG/DL (70-104); MAGNESIUM 2.5 MG/DL (1.5-2.4); PHOSPHORUS 4.8 MG/DL (2.3-4.5); POTASSIUM 3.3 MMOL/L (3.5-5.1); SODIUM 141 MMOL/L (135-145); eGFR 10 ML/MIN
[2019-05-22] VITALS (14 sets, daily range): BP systolic 131–174; BP diastolic 40–98
--- NOTE | 2019-05-22 01:30 | NUR ---
No new orders given at this time. Will cont. to monitor.
--- NOTE | 2019-05-22 01:30 | NUR ---
Martell Dorado, FOOT AND ANKLE SURGEON notified of Pt's SB in the mid 40s, whereas she had been in SB/SR in the 60s and high 50s. Other VS reported at this time, BP: 131/44, O2 Sat: 98%, asymptomatic, denying dizziness or lightheadedness. BiPap on cont. this NOC on CPap settings.
[2019-05-22] MEDS: potassium Cl 20 mEq SR tablet PO PRN (01:50)
[2019-05-22] MEDS: acetaminophen 325mg/10.15ml oral unit dose solution PO SCH ×5 (02:00→20:00)
--- NOTE | 2019-05-22 02:00 | NUR ---
Pt. refused to allow staff to take VS.
--- NOTE | 2019-05-22 05:30 | NUR ---
Christina Dorado updated of ongoing SB in low to mid 40s this am. No new orders given. Will cont. to monitor.
[2019-05-22 06:14] LABS: ALBUMIN 3.4 G/DL (3.4-5.0); ANION GAP 10 (8-16); BASOPHILS % (AUTO) 0.7 % (0-1); BLOOD UREA NITROGEN 92 MG/DL (7-18); BUN/CREATININE RATIO 21.1 (6.6-38.0); CHLORIDE 102 MMOL/L (99-107); CREATININE 4.36 MG/DL (0.40-0.90); EOSINOPHILS # (AUTO) 0.1 X10'3 (0-0.9); EOSINOPHILS % (AUTO) 1.7 % (0-6); HEMATOCRIT 31.1 % (35.0-45.0); HEMOGLOBIN 10.1 g/dl (12.0-16.0); LYMPHOCYTES # (AUTO) 0.6 X10'3 (1.1-4.8); LYMPHOCYTES % (AUTO) 9.2 % (21-51); MAGNESIUM 2.5 MG/DL (1.5-2.4); MEAN CORPUSCULAR HEMOGLOBIN 32.2 PG (27.0-31.0); MEAN CORPUSCULAR HGB CONC 32.5 g/dL (33.0-36.5); MEAN CORPUSCULAR VOLUME 99.1 FL (78-98); MEAN PLATELET VOLUME 10.2 FL (7.4-10.4); MONOCYTES # (AUTO) 0.8 X10'3 (0-0.9); MONOCYTES % (AUTO) 13.1 % (2-12); NEUTROPHILS # (AUTO) 4.7 X10'3 (1.8-7.7); NEUTROPHILS % (AUTO) 75.3 % (42-75); PHOSPHORUS 5.4 MG/DL (2.3-4.5); PLATELET COUNT 146 X10'3 (140-440); POTASSIUM 3.5 MMOL/L (3.5-5.1); RED BLOOD COUNT 3.14 X10'6 (4.20-5.60); RED CELL DISTRIBUTION WIDTH 16.7 % (11.5-14.5); SODIUM 145 MMOL/L (135-145); TOTAL CARBON DIOXIDE 32.6 MMOL/L (24-32); WHITE BLOOD COUNT 6.2 X10'3 (4.5-11.0); eGFR 10 ML/MIN
[2019-05-22 06:17] LABS: GLUCOSE 47 MG/DL (70-104)
[2019-05-22 06:23] LABS: PARTIAL THROMBOPLASTIN TIME 30 SECONDS (22-32)
[2019-05-22] MEDS: dextrose ORAL solution 15 GM/59 ML bottle PO PRN ×2 (06:24→12:13)
--- NOTE | 2019-05-22 06:30 | NUR ---
Patient in room PCU 3028. I have received report from AMBREEN Lopez and had the opportunity to ask questions and assume patient care.
--- NOTE | 2019-05-22 06:47 | NUR ---
Called September [address] re critical value of blood glucose of 47. Glucose shot given per protocol, recheck was 81. Will continue to monitor.
--- NOTE | 2019-05-22 07:29 | NUR ---
Problems reprioritized. Patient report given, questions answered & plan of care reviewed with Klarissa CROOK.
[2019-05-22] MEDS: docusate sod 100mg capsule PO SCH ×2 (08:00→20:00)
[2019-05-22] MEDS: verapamil SR 120mg (sust. release) tab PO SCH (08:00)
[2019-05-22] MEDS: propranolol 10mg tablet PO SCH (08:00)
[2019-05-22] MEDS: anastrozole 1 MG tablet PO SCH (08:27)
[2019-05-22] MEDS: fluocinonide 0.05% 15gm ointment TP SCH ×2 (08:28→20:27)
[2019-05-22] MEDS: ipratropium 0.06% nasal spray 15ml NS SCH (08:28)
[2019-05-22] MEDS: pantoprazole 40mg Tablet.DR PO SCH (08:29)
[2019-05-22] MEDS: niacin 500mg ER (Niaspan) tablet PO SCH ×2 (08:29→20:22)
[2019-05-22] MEDS: aspirin 325mg tablet PO SCH (08:29)
[2019-05-22] MEDS: lactobacillus rhamnosus 10,000 MMU CELLS/CAPSULE PO SCH (08:29)
[2019-05-22] MEDS: ascorbic acid 500mg tablet PO SCH ×2 (08:29→20:24)
[2019-05-22] MEDS: metolazone 2.5mg tablet PO SCH (08:29)
[2019-05-22] MEDS: levoTHYROXINE 100mcg tablet PO SCH (08:29)
[2019-05-22] MEDS: traMADol 50MG tablet PO SCH ×2 (08:29→20:00)
[2019-05-22] MEDS: loratadine 10mg tablet PO SCH (08:30)
[2019-05-22] MEDS: atorvastatin 20mg tablet PO SCH (08:30)
[2019-05-22] MEDS: amiodarone 200mg tablet PO SCH (08:30)
[2019-05-22] MEDS: hydrALAZINE 25 MG tablet PO SCH ×2 (08:30→23:04)
[2019-05-22] MEDS: acetylcysteine oral sol. 200 MG/ML 4ml vial PO SCH ×2 (08:30→20:20)
[2019-05-22] MEDS: heparin, porcine 5000 units/ml vial SQ SCH ×2 (08:32→20:26)
[2019-05-22] MEDS: calcium carbonate/vitamin D3 tablet PO SCH (08:45)
[2019-05-22] MEDS: fenofibrate 145mg tablet PO SCH (08:46)
[2019-05-22] MEDS: ferrous sulfate 325mg tablet PO SCH (08:46)
[2019-05-22] MEDS: clopidogrel 75mg tablet PO SCH (08:46)
[2019-05-22] MEDS: vitamin D (cholecalciferol) 1,000 unit tablet PO SCH (08:55)
[2019-05-22] MEDS: budesonide 0.5mg/2ml UD nebule IH SCH ×2 (10:02→20:04)
--- NOTE | 2019-05-22 12:15 | NUR ---
Dasha Haywood at nurses station. Provider notified of critical low blood glucose of 44 and of blood pressures increasing. Orders received to decrease HS lantus dose from 25 units to 10 units.
[2019-05-22 12:27] LABS: ALBUMIN 3.4 G/DL (3.4-5.0); ANION GAP 11 (8-16); BLOOD UREA NITROGEN 88 MG/DL (7-18); BUN/CREATININE RATIO 20.4 (6.6-38.0); CALCIUM 9.4 MG/DL (8.5-10.1); CHLORIDE 100 MMOL/L (99-107); CREATININE 4.32 MG/DL (0.40-0.90); GLUCOSE 84 MG/DL (70-104); MAGNESIUM 2.5 MG/DL (1.5-2.4); PHOSPHORUS 5.4 MG/DL (2.3-4.5); POTASSIUM 3.4 MMOL/L (3.5-5.1); SODIUM 142 MMOL/L (135-145); TOTAL CARBON DIOXIDE 31.2 MMOL/L (24-32); eGFR 10 ML/MIN
[2019-05-22] MEDS ORDERED: metolazone 2.5mg tablet PO SCH (12:30)
[2019-05-22] MEDS: furosemide inj 100 MG in normal saline 100ml IV soln 90 ML IV SCH ×2 (13:25→21:25)
--- NOTE | 2019-05-22 18:46 | NUR ---
Problems reprioritized. Patient report given, questions answered & plan of care reviewed with AMBREEN Hamilton.
--- NOTE | 2019-05-22 18:54 | NUR ---
Patient in room PCU 3028. I have received report from AMBREEN Cooper and had the opportunity to ask questions and assume patient care.
[2019-05-22] MEDS: verapamil SR 180mg tablet PO SCH (20:22)
[2019-05-22] MEDS: allopurinol 100mg tablet PO SCH (20:25)
[2019-05-22] MEDS ORDERED: insulin glargine (Lantus) pen - multi-dose SQ SCH ×2 (21:00)
[2019-05-22] MEDS ORDERED: lactulose 20gm/30ml cup PO PRN (21:45)
--- NOTE | 2019-05-22 23:07 | NUR ---
Nancy asked me to discuss the patients Lantus dose and administration with her. She stated to me that she takes 28 mg of Lantus regularly at night and checks her BS's in the morning before breakfast when she awakens. She showed me her BS trends for the mornings and they have been stable in to low 100's. There was one BS on 05/20 in the morning which was 71.
[2019-05-23] VITALS (11 sets, daily range): BP systolic 140–182; BP diastolic 45–89
[2019-05-23] MEDS: potassium Cl 20 mEq SR tablet PO PRN ×4 (00:39→23:10)
[2019-05-23] MEDS: acetaminophen 325mg/10.15ml oral unit dose solution PO SCH ×3 (02:00→14:00)
[2019-05-23] MEDS: nitroGLYCERIN 0.4mg SUBLingual tab SL PRN (04:04)
--- NOTE | 2019-05-23 04:06 | NUR ---
Patient stated she was having chest pain to NA. I came in to ask her about her chest pain and she stated it is more of a "wierd feeling" more like "pressure" not exaclty pain. She said it is hard to describe but it feels more tight, and "just a weird feeling." I administered 1, 0.4 mg nitroglycerin tablet and will continue to monitor q5min. Bp is 166/68 MAP (93).
--- NOTE | 2019-05-23 04:47 | NUR ---
After speaking with the patient more about what she felt, it seems she was feeling palpitations from her heart rythm changing. The patient has converted to A-FIb with rate in the low 100's.
--- NOTE | 2019-05-23 04:48 | NUR ---
New EKG is in chart
[2019-05-23 05:36] LABS: PARTIAL THROMBOPLASTIN TIME 31 SECONDS (22-32)
[2019-05-23 05:55] LABS: BASOPHILS # (AUTO) 0.1 X10'3 (0-0.2); BASOPHILS % (AUTO) 0.8 % (0-1); EOSINOPHILS # (AUTO) 0.1 X10'3 (0-0.9); EOSINOPHILS % (AUTO) 1.9 % (0-6); HEMATOCRIT 33.4 % (35.0-45.0); HEMOGLOBIN 10.8 g/dl (12.0-16.0); LYMPHOCYTES # (AUTO) 0.6 X10'3 (1.1-4.8); LYMPHOCYTES % (AUTO) 9.4 % (21-51); MEAN CORPUSCULAR HEMOGLOBIN 32.2 PG (27.0-31.0); MEAN CORPUSCULAR HGB CONC 32.5 g/dL (33.0-36.5); MEAN PLATELET VOLUME 10.2 FL (7.4-10.4); MONOCYTES # (AUTO) 0.8 X10'3 (0-0.9); MONOCYTES % (AUTO) 12.6 % (2-12); NEUTROPHILS # (AUTO) 4.7 X10'3 (1.8-7.7); NEUTROPHILS % (AUTO) 75.3 % (42-75); PLATELET COUNT 146 X10'3 (140-440); RED BLOOD COUNT 3.37 X10'6 (4.20-5.60); WHITE BLOOD COUNT 6.2 X10'3 (4.5-11.0)
[2019-05-23 05:57] LABS: ALBUMIN 3.4 G/DL (3.4-5.0); ANION GAP 14 (8-16); BLOOD UREA NITROGEN 83 MG/DL (7-18); BUN/CREATININE RATIO 19.2 (6.6-38.0); CALCIUM 9.1 MG/DL (8.5-10.1); CHLORIDE 98 MMOL/L (99-107); CREATININE 4.33 MG/DL (0.40-0.90); GLUCOSE 82 MG/DL (70-104); MAGNESIUM 2.4 MG/DL (1.5-2.4); PHOSPHORUS 4.9 MG/DL (2.3-4.5); SODIUM 143 MMOL/L (135-145); TOTAL CARBON DIOXIDE 31.5 MMOL/L (24-32); eGFR 10 ML/MIN
[2019-05-23 06:02] LABS: POTASSIUM 2.9 MMOL/L (3.5-5.1)
[2019-05-23] MEDS ORDERED: potassium Cl 20 mEq SR tablet PO PRN (06:10)
--- NOTE | 2019-05-23 07:03 | NUR ---
Problems reprioritized. Patient report given, questions answered & plan of care reviewed with AMBREEN Orozco.
--- NOTE | 2019-05-23 07:16 | NUR ---
Patient in room PCU 3028. I have received report from AMBREEN FLEMING and had the opportunity to ask questions and assume patient care.
[2019-05-23] MEDS: traMADol 50MG tablet PO SCH (08:00)
[2019-05-23] MEDS ORDERED: metolazone 2.5mg tablet PO SCH (08:00)
[2019-05-23] MEDS: furosemide inj 100 MG in normal saline 100ml IV soln 90 ML IV SCH (08:37)
[2019-05-23] MEDS: pantoprazole 40mg Tablet.DR PO SCH (08:40)
[2019-05-23] MEDS: ipratropium 0.06% nasal spray 15ml NS SCH (08:41)
[2019-05-23] MEDS: acetylcysteine oral sol. 200 MG/ML 4ml vial PO SCH ×2 (08:43→20:27)
[2019-05-23] MEDS: anastrozole 1 MG tablet PO SCH (08:47)
[2019-05-23] MEDS: loratadine 10mg tablet PO SCH (08:49)
[2019-05-23] MEDS: docusate sod 100mg capsule PO SCH ×2 (08:49→20:25)
[2019-05-23] MEDS: verapamil SR 180mg tablet PO SCH ×2 (08:49→20:24)
[2019-05-23] MEDS: amiodarone 200mg tablet PO SCH (08:50)
[2019-05-23] MEDS: lactobacillus rhamnosus 10,000 MMU CELLS/CAPSULE PO SCH (08:51)
[2019-05-23] MEDS: ferrous sulfate 325mg tablet PO SCH (08:51)
[2019-05-23] MEDS: atorvastatin 20mg tablet PO SCH (08:52)
[2019-05-23] MEDS: niacin 500mg ER (Niaspan) tablet PO SCH ×2 (08:52→20:25)
[2019-05-23] MEDS: calcium carbonate/vitamin D3 tablet PO SCH (08:53)
[2019-05-23] MEDS: clopidogrel 75mg tablet PO SCH (08:53)
[2019-05-23] MEDS: levoTHYROXINE 100mcg tablet PO SCH (08:54)
[2019-05-23] MEDS: fenofibrate 145mg tablet PO SCH (08:54)
[2019-05-23] MEDS: ascorbic acid 500mg tablet PO SCH (08:56)
[2019-05-23] MEDS: vitamin D (cholecalciferol) 1,000 unit tablet PO SCH (08:57)
[2019-05-23] MEDS: heparin, porcine 5000 units/ml vial SQ SCH ×2 (08:59→20:30)
[2019-05-23] MEDS: fluocinonide 0.05% 15gm ointment TP SCH ×2 (09:00→20:30)
[2019-05-23] MEDS: aspirin 325mg tablet PO SCH (09:02)
[2019-05-23] MEDS: budesonide 0.5mg/2ml UD nebule IH SCH ×2 (09:28→20:03)
--- NOTE | 2019-05-23 11:38 | NUR ---
CALL TO LAB, DESTINY MENDOZA CALL ME BACK, RE:1030 RENAL PANEL ORDERED, NO RESULT, ALSO AOT FOR PBNP NO DONE.
[2019-05-23] MEDS: hydrALAZINE 25 MG tablet PO SCH ×2 (11:53→23:42)
[2019-05-23] MEDS: apixaban 5mg tablet PO SCH ×2 (11:53→20:25)
[2019-05-23] MEDS: furosemide 10 MG/1 ML 10ml inj IV SCH ×2 (12:06→20:22)
[2019-05-23 13:11] LABS: ALBUMIN 3.5 G/DL (3.4-5.0); ANION GAP 9 (8-16); BLOOD UREA NITROGEN 85 MG/DL (7-18); BUN/CREATININE RATIO 21.1 (6.6-38.0); CALCIUM 9.7 MG/DL (8.5-10.1); CHLORIDE 98 MMOL/L (99-107); CREATININE 4.02 MG/DL (0.40-0.90); GLUCOSE 115 MG/DL (70-104); PHOSPHORUS 4.1 MG/DL (2.3-4.5); POTASSIUM 3.3 MMOL/L (3.5-5.1); SODIUM 142 MMOL/L (135-145); TOTAL CARBON DIOXIDE 35.3 MMOL/L (24-32); eGFR 11 ML/MIN
[2019-05-23 17:47] LABS: ALBUMIN 3.1 G/DL (3.4-5.0); ANION GAP 7 (8-16); BLOOD UREA NITROGEN 88 MG/DL (7-18); BUN/CREATININE RATIO 21.1 (6.6-38.0); CALCIUM 9.8 MG/DL (8.5-10.1); CHLORIDE 98 MMOL/L (99-107); CREATININE 4.17 MG/DL (0.40-0.90); GLUCOSE 151 MG/DL (70-104); PHOSPHORUS 4.2 MG/DL (2.3-4.5); POTASSIUM 3.2 MMOL/L (3.5-5.1); SODIUM 142 MMOL/L (135-145); TOTAL CARBON DIOXIDE 36.8 MMOL/L (24-32); eGFR 10 ML/MIN
--- NOTE | 2019-05-23 18:25 | NUR ---
Problems reprioritized. Patient report given, questions answered & plan of care reviewed with AMBREEN FLEMING.
--- NOTE | 2019-05-23 19:28 | NUR ---
Patient in room PCU 3028. I have received report from AMBREEN Orozco and had the opportunity to ask questions and assume patient care.
[2019-05-23] MEDS: allopurinol 100mg tablet PO SCH (20:33)
[2019-05-23] MEDS ORDERED: famotidine 20mg tablet PO ONE (21:00)
[2019-05-23] MEDS: insulin glargine (Lantus) pen - multi-dose SQ SCH (21:00)
--- NOTE | 2019-05-23 22:18 | NUR ---
Patient has just converted back into sinus rhythm.
[2019-05-23 23:05] LABS: ALBUMIN 3.3 G/DL (3.4-5.0); ANION GAP 10 (8-16); BLOOD UREA NITROGEN 88 MG/DL (7-18); BUN/CREATININE RATIO 21.1 (6.6-38.0); CALCIUM 9.8 MG/DL (8.5-10.1); CHLORIDE 97 MMOL/L (99-107); CREATININE 4.18 MG/DL (0.40-0.90); GLUCOSE 184 MG/DL (70-104); PHOSPHORUS 4.1 MG/DL (2.3-4.5); POTASSIUM 3.3 MMOL/L (3.5-5.1); SODIUM 142 MMOL/L (135-145); eGFR 10 ML/MIN
--- NOTE | 2019-05-23 23:10 | NUR ---
Administered and scanned patient's potassium pill around 2044. I broke the pill in half and gave her 10 mEq of potassium per protocol due to her creatinine of 4.17.
[2019-05-24] VITALS (7 sets, daily range): BP systolic 151–178; BP diastolic 34–54
--- NOTE | 2019-05-24 01:09 | NUR ---
spoke with September regarding potassium replacement. she stated to hold any more potassium replacement for now, and she will readdress with AM labs
[2019-05-24 05:34] LABS: BASOPHILS % (AUTO) 0.6 % (0-1); EOSINOPHILS % (AUTO) 0.7 % (0-6); HEMATOCRIT 28.8 % (35.0-45.0); HEMOGLOBIN 9.3 g/dl (12.0-16.0); LYMPHOCYTES # (AUTO) 0.5 X10'3 (1.1-4.8); LYMPHOCYTES % (AUTO) 8.8 % (21-51); MEAN CORPUSCULAR HGB CONC 32.4 g/dL (33.0-36.5); MEAN CORPUSCULAR VOLUME 98.8 FL (78-98); MEAN PLATELET VOLUME 10.6 FL (7.4-10.4); MONOCYTES # (AUTO) 0.7 X10'3 (0-0.9); MONOCYTES % (AUTO) 12.4 % (2-12); NEUTROPHILS # (AUTO) 4.6 X10'3 (1.8-7.7); NEUTROPHILS % (AUTO) 77.5 % (42-75); PLATELET COUNT 139 X10'3 (140-440); RED BLOOD COUNT 2.92 X10'6 (4.20-5.60); RED CELL DISTRIBUTION WIDTH 16.5 % (11.5-14.5); WHITE BLOOD COUNT 5.9 X10'3 (4.5-11.0)
[2019-05-24 05:50] LABS: ALBUMIN 3.1 G/DL (3.4-5.0); ANION GAP 9 (8-16); BLOOD UREA NITROGEN 92 MG/DL (7-18); BUN/CREATININE RATIO 22.5 (6.6-38.0); CALCIUM 9.4 MG/DL (8.5-10.1); CHLORIDE 97 MMOL/L (99-107); CREATININE 4.09 MG/DL (0.40-0.90); GLUCOSE 117 MG/DL (70-104); MAGNESIUM 2.4 MG/DL (1.5-2.4); PHOSPHORUS 3.7 MG/DL (2.3-4.5); POTASSIUM 3.1 MMOL/L (3.5-5.1); SODIUM 143 MMOL/L (135-145); TOTAL CARBON DIOXIDE 36.7 MMOL/L (24-32); eGFR 11 ML/MIN
[2019-05-24] MEDS ORDERED: potassium Cl 20 mEq SR tablet PO ONE (06:05)
--- NOTE | 2019-05-24 06:05 | NUR ---
Per September give patient one time dose of potassium for k lab value of 3.1 then re-check k in 6 hrs.
--- NOTE | 2019-05-24 06:17 | NUR ---
Problems reprioritized. Patient report given, questions answered & plan of care reviewed with AMBREEN Bonilla.
[2019-05-24] MEDS: budesonide 0.5mg/2ml UD nebule IH SCH ×2 (07:45→19:28)
[2019-05-24] MEDS: heparin, porcine 5000 units/ml vial SQ SCH (08:00)
[2019-05-24] MEDS: acetylcysteine oral sol. 200 MG/ML 4ml vial PO SCH ×2 (09:01→20:05)
[2019-05-24] MEDS: fluocinonide 0.05% 15gm ointment TP SCH ×2 (09:02→20:00)
[2019-05-24] MEDS: loratadine 10mg tablet PO SCH (09:03)
[2019-05-24] MEDS: ferrous sulfate 325mg tablet PO SCH (09:03)
[2019-05-24] MEDS: furosemide 10 MG/1 ML 10ml inj IV SCH ×2 (09:03→20:04)
[2019-05-24] MEDS: amiodarone 200mg tablet PO SCH (09:03)
[2019-05-24] MEDS: clopidogrel 75mg tablet PO SCH (09:03)
[2019-05-24] MEDS: atorvastatin 20mg tablet PO SCH (09:03)
[2019-05-24] MEDS: aspirin 81mg tab.chew PO SCH (09:03)
[2019-05-24] MEDS: ondansetron/PF 4mg/2ml inj IV PRN ×2 (09:03→15:52)
[2019-05-24] MEDS: fenofibrate 145mg tablet PO SCH (09:04)
[2019-05-24] MEDS: levoTHYROXINE 100mcg tablet PO SCH (09:04)
[2019-05-24] MEDS: ascorbic acid 500mg tablet PO SCH (09:04)
[2019-05-24] MEDS: lactobacillus rhamnosus 10,000 MMU CELLS/CAPSULE PO SCH (09:06)
[2019-05-24] MEDS: vitamin D (cholecalciferol) 1,000 unit tablet PO SCH (09:06)
[2019-05-24] MEDS: calcium carbonate/vitamin D3 tablet PO SCH (09:06)
[2019-05-24] MEDS: docusate sod 100mg capsule PO SCH ×2 (09:06→20:06)
[2019-05-24] MEDS: niacin 500mg ER (Niaspan) tablet PO SCH ×2 (09:06→20:27)
[2019-05-24] MEDS: apixaban 5mg tablet PO SCH ×2 (09:06→20:06)
[2019-05-24] MEDS: ipratropium 0.06% nasal spray 15ml NS SCH (09:07)
[2019-05-24] MEDS: anastrozole 1 MG tablet PO SCH (09:07)
[2019-05-24] MEDS: verapamil SR 180mg tablet PO SCH ×2 (09:09→20:06)
[2019-05-24] MEDS: pantoprazole 40mg Tablet.DR PO SCH (09:09)
--- NOTE | 2019-05-24 09:37 | NUR ---
Patient is refusing a new IV start at this time. IV outdated. Education provided to patient on risk of infection. Patient verbalizes understanding and is still refusing at this time. Will continue to monitor.
[2019-05-24] MEDS: hydrALAZINE 25 MG tablet PO SCH ×2 (11:12→23:30)
[2019-05-24] MEDS: acetaminophen 325mg/10.15ml oral unit dose solution PO PRN (11:13)
--- NOTE | 2019-05-24 18:15 | NUR ---
Problems reprioritized. Patient report given, questions answered & plan of care reviewed with Yudi CROOK.
--- NOTE | 2019-05-24 18:35 | NUR ---
Patient in room PCU 3028. I have received report from Irene CROOK and had the opportunity to ask questions and assume patient care.
[2019-05-24] MEDS: allopurinol 100mg tablet PO SCH (20:28)
[2019-05-24] MEDS: insulin glargine (Lantus) pen - multi-dose SQ SCH (22:28)
[2019-05-25 02:00] VITALS: BP 164/53
[2019-05-25 04:53] LABS: BASOPHILS % (AUTO) 0.5 % (0-1); EOSINOPHILS % (AUTO) 0.5 % (0-6); HEMATOCRIT 27.2 % (35.0-45.0); HEMOGLOBIN 8.9 g/dl (12.0-16.0); LYMPHOCYTES # (AUTO) 0.5 X10'3 (1.1-4.8); LYMPHOCYTES % (AUTO) 7.3 % (21-51); MEAN CORPUSCULAR HEMOGLOBIN 32.4 PG (27.0-31.0); MEAN CORPUSCULAR HGB CONC 32.9 g/dL (33.0-36.5); MEAN CORPUSCULAR VOLUME 98.5 FL (78-98); MEAN PLATELET VOLUME 9.8 FL (7.4-10.4); MONOCYTES # (AUTO) 0.7 X10'3 (0-0.9); MONOCYTES % (AUTO) 10.9 % (2-12); NEUTROPHILS # (AUTO) 5.3 X10'3 (1.8-7.7); NEUTROPHILS % (AUTO) 80.8 % (42-75); PLATELET COUNT 130 X10'3 (140-440); RED BLOOD COUNT 2.76 X10'6 (4.20-5.60); WHITE BLOOD COUNT 6.5 X10'3 (4.5-11.0)
[2019-05-25 05:31] LABS: ALBUMIN 3.2 G/DL (3.4-5.0); ANION GAP 8 (8-16); BLOOD UREA NITROGEN 91 MG/DL (7-18); BUN/CREATININE RATIO 22.1 (6.6-38.0); CALCIUM 9.3 MG/DL (8.5-10.1); CHLORIDE 97 MMOL/L (99-107); CREATININE 4.11 MG/DL (0.40-0.90); GLUCOSE 133 MG/DL (70-104); MAGNESIUM 2.2 MG/DL (1.5-2.4); SODIUM 145 MMOL/L (135-145); TOTAL CARBON DIOXIDE 39.9 MMOL/L (24-32); eGFR 11 ML/MIN
[2019-05-25 05:55] LABS: POTASSIUM 2.8 MMOL/L (3.5-5.1)
[2019-05-25] MEDS ORDERED: potassium Cl 20 mEq SR tablet PO STA (05:59)
[2019-05-25 06:00] VITALS: BP 169/69
--- NOTE | 2019-05-25 06:00 | NUR ---
critical value of k 2.8, called Juan CHAN, she said she will put order in
--- NOTE | 2019-05-25 06:18 | NUR ---
Problems reprioritized. Patient report given, questions answered & plan of care reviewed with Irene CROOK.
[2019-05-25] MEDS: anastrozole 1 MG tablet PO SCH (07:31)
[2019-05-25] MEDS: ondansetron/PF 4mg/2ml inj IV PRN ×3 (07:31→21:36)
[2019-05-25] MEDS: furosemide 10 MG/1 ML 10ml inj IV SCH (07:33)
[2019-05-25] MEDS: atorvastatin 20mg tablet PO SCH (07:34)
[2019-05-25] MEDS: fluocinonide 0.05% 15gm ointment TP SCH ×2 (07:34→20:00)
[2019-05-25] MEDS: acetylcysteine oral sol. 200 MG/ML 4ml vial PO SCH ×2 (07:34→19:57)
[2019-05-25] MEDS: vitamin D (cholecalciferol) 1,000 unit tablet PO SCH (07:34)
[2019-05-25] MEDS: verapamil SR 180mg tablet PO SCH ×2 (07:34→19:58)
[2019-05-25] MEDS: ipratropium 0.06% nasal spray 15ml NS SCH (07:34)
[2019-05-25] MEDS: amiodarone 200mg tablet PO SCH (07:35)
[2019-05-25] MEDS: loratadine 10mg tablet PO SCH (07:35)
[2019-05-25] MEDS: lactobacillus rhamnosus 10,000 MMU CELLS/CAPSULE PO SCH (07:35)
[2019-05-25] MEDS: docusate sod 100mg capsule PO SCH ×2 (07:36→19:56)
[2019-05-25] MEDS: ascorbic acid 500mg tablet PO SCH (07:36)
[2019-05-25] MEDS: ferrous sulfate 325mg tablet PO SCH (07:36)
[2019-05-25] MEDS: fenofibrate 145mg tablet PO SCH (07:36)
[2019-05-25] MEDS: pantoprazole 40mg Tablet.DR PO SCH (07:36)
[2019-05-25] MEDS: calcium carbonate/vitamin D3 tablet PO SCH (07:36)
[2019-05-25] MEDS: clopidogrel 75mg tablet PO SCH (07:36)
[2019-05-25] MEDS: niacin 500mg ER (Niaspan) tablet PO SCH ×2 (07:36→19:58)
[2019-05-25] MEDS: levoTHYROXINE 100mcg tablet PO SCH (07:36)
[2019-05-25] MEDS: apixaban 5mg tablet PO SCH ×2 (07:36→19:56)
[2019-05-25] MEDS: aspirin 81mg tab.chew PO SCH (07:39)
[2019-05-25] MEDS: budesonide 0.5mg/2ml UD nebule IH SCH ×2 (08:34→20:26)
--- NOTE | 2019-05-25 10:08 | NUR ---
Initial: Pt admit with CP and acute on chronic renal failure with hx CKD stage III. Per MD progress notes creatinine improving. Per scaled weights pt is -4.6 kg, likely fluid related as pt receiving Lasix and is -16,325 mL fluid balance over the last five days per I&O. Pt currently on a 2L fluid restriction with renal diet documented with some 50% PO intake however overall averaging 75% likely meeting nutrient needs. [facility] 05/24. Will continue to follow. Recommendations: 1) Continue renal diet with fluid restriction per MD 2) Monitor BG levels and need for addition of CHO controlled diet 3) Routine bowel care 4) Wt per rx Addendum: 05/25/19 at [address] Amended: Links added.
[2019-05-25 11:00] VITALS: BP 161/57
[2019-05-25] MEDS: furosemide 20MG tablet PO SCH ×2 (11:03→19:56)
--- NOTE | 2019-05-25 12:52 | NUR ---
Patient in room PCU 3028. I have received report from AMBREEN Bonilla and had the opportunity to ask questions and assume patient care.
--- NOTE | 2019-05-25 12:53 | NUR ---
Problems reprioritized. Patient report given, questions answered & plan of care reviewed with Paul CROOK. Patient stable at transfer of care.
[2019-05-25] MEDS: hydrALAZINE 25 MG tablet PO SCH (13:00)
[2019-05-25] MEDS ORDERED: magnesium 4gm in 100ml NS 100 ML IV PRN (14:30)
[2019-05-25] MEDS ORDERED: potassium Cl 20 mEq SR tablet PO PRN (14:30)
[2019-05-25] MEDS ORDERED: magnesium Cl slow-release 64mg tablet PO PRN (14:30)
--- NOTE | 2019-05-25 14:34 | NUR ---
Called Dr Shah about K level of 3.0 said to do protocol and notified about chest pain. He replied no need for EKG.
[2019-05-25] MEDS: potassium Cl 20 mEq SR tablet PO PRN ×2 (14:38→19:57)
[2019-05-25 15:00] VITALS: BP 148/43
[2019-05-25] MEDS ORDERED: HYDROmorphone 1 mg/ml syringe ONE ×2 (16:28→17:43)
[2019-05-25] MEDS: nitroGLYCERIN 0.4mg SUBLingual tab SL PRN ×2 (17:12→17:27)
[2019-05-25] MEDS ORDERED: HYDROmorphone inj. 0.5 MG/0.5 ML DISP.SYRIN IV ONE (17:40)
--- NOTE | 2019-05-25 17:41 | NUR ---
Faxed EKG to Dr Shah in the ICU. Lead 5 appears to be more depressed than previously.
[2019-05-25] MEDS ORDERED: HYDROmorphone 1 mg/ml syringe IV ONE (17:50)
--- NOTE | 2019-05-25 17:54 | NUR ---
0.5 mg of dilaudid given emar had to generate new order.
[2019-05-25 18:00] VITALS: BP 150/48
--- NOTE | 2019-05-25 18:00 | NUR ---
0.5mg of dilaudid given at 5061 [id number]
--- NOTE | 2019-05-25 18:19 | NUR ---
Problems reprioritized. Patient report given, questions answered & plan of care reviewed with AMBREEN Bagley.
--- NOTE | 2019-05-25 18:27 | NUR ---
Patient in room PCU 3028. I have received report from Paul CROOK and had the opportunity to ask questions and assume patient care.
[2019-05-25] MEDS: traMADol 50MG tablet PO PRN (19:54)
--- NOTE | 2019-05-25 20:00 | NUR ---
PT VOMITTED AFTER RECEIVING 2000 MEDS,
[2019-05-25] MEDS: insulin glargine (Lantus) pen - multi-dose SQ SCH (21:00)
--- NOTE | 2019-05-25 21:00 | NUR ---
pt vomitted again, Hr changed from sinus to sinus tach
--- NOTE | 2019-05-25 21:00 | NUR ---
pt still very drowsy, rocking head back and forth, reported not feeling well, vomitted again 2 times with orange/ brown discharge.
[2019-05-25] MEDS: allopurinol 100mg tablet PO SCH (21:41)
--- NOTE | 2019-05-25 22:00 | NUR ---
after consulted with Jona charge nurse, she recommended to not give pt lantus due to pt of several episode of N/V and pt also skipped dinner
[2019-05-25 23:00] VITALS: BP 139/55
[2019-05-25] MEDS ORDERED: proCHLORperazine 10 MG/2 ml inj IV ONE (23:05)
--- NOTE | 2019-05-26 | NUR ---
pt went from sinus tach to afib, notified WESTERN TACK ASSEMBLY LINE WORKER Juan. Pt was vomitting, got an order of compazine once IV Pt have a bowl movement of black tarry stool with foul smell, contacted WESTERN T[employer] ASSEMBLY LINE WORKER. SHe put in order of type and screen stool sample
[2019-05-26 02:02] LABS: BASOPHILS % (AUTO) 0.4 % (0-1); EOSINOPHILS % (AUTO) 0 % (0-6); HEMATOCRIT 28.7 % (35.0-45.0); HEMOGLOBIN 9.3 g/dl (12.0-16.0); LYMPHOCYTES # (AUTO) 0.3 X10'3 (1.1-4.8); LYMPHOCYTES % (AUTO) 3.5 % (21-51); MEAN CORPUSCULAR HEMOGLOBIN 32.1 PG (27.0-31.0); MEAN CORPUSCULAR HGB CONC 32.5 g/dL (33.0-36.5); MEAN CORPUSCULAR VOLUME 98.6 FL (78-98); MEAN PLATELET VOLUME 8.9 FL (7.4-10.4); MONOCYTES # (AUTO) 0.6 X10'3 (0-0.9); MONOCYTES % (AUTO) 6.3 % (2-12); NEUTROPHILS # (AUTO) 8.3 X10'3 (1.8-7.7); NEUTROPHILS % (AUTO) 89.8 % (42-75); PLATELET COUNT 153 X10'3 (140-440); RED BLOOD COUNT 2.91 X10'6 (4.20-5.60); RED CELL DISTRIBUTION WIDTH 17.4 % (11.5-14.5); WHITE BLOOD COUNT 9.2 X10'3 (4.5-11.0)
[2019-05-26 02:13] LABS: ALANINE AMINOTRANSFERASE 28 U/L (12-78); ALBUMIN 3.6 G/DL (3.4-5.0); ALBUMIN/GLOBULIN RATIO 1.1 (1.1-1.5); ALKALINE PHOSPHATASE 35 IU/L (46-116); ANION GAP 13 (8-16); ASPARTATE AMINO TRANSFERASE 52 U/L (10-37); BILIRUBIN,TOTAL 0.8 MG/DL (0.1-1.0); BLOOD UREA NITROGEN 97 MG/DL (7-18); CALCIUM 9.9 MG/DL (8.5-10.1); CHLORIDE 96 MMOL/L (99-107); CREATININE 4.04 MG/DL (0.40-0.90); GLUCOSE 176 MG/DL (70-104); MAGNESIUM 2.2 MG/DL (1.5-2.4); POTASSIUM 3.6 MMOL/L (3.5-5.1); SODIUM 146 MMOL/L (135-145); TOTAL CARBON DIOXIDE 37.5 MMOL/L (24-32); TOTAL PROTEIN 6.9 G/DL (6.4-8.2); eGFR 11 ML/MIN
[2019-05-26 03:00] VITALS: BP 152/46
--- NOTE | 2019-05-26 06:12 | NUR ---
Problems reprioritized. Patient report given, questions answered & plan of care reviewed with Irene CROOK.
--- NOTE | 2019-05-26 06:30 | NUR ---
Patient in room PCU 3028. I have received report from Yudi CROOK and had the opportunity to ask questions and assume patient care.
[2019-05-26 07:00] VITALS: BP 150/46
[2019-05-26] MEDS: budesonide 0.5mg/2ml UD nebule IH SCH ×2 (07:27→21:12)
[2019-05-26] MEDS: docusate sod 100mg capsule PO SCH ×2 (08:00→21:24)
[2019-05-26] MEDS: anastrozole 1 MG tablet PO SCH (08:00)
[2019-05-26] MEDS: niacin 500mg ER (Niaspan) tablet PO SCH ×2 (08:00→21:38)
[2019-05-26] MEDS: atorvastatin 20mg tablet PO SCH (08:00)
[2019-05-26] MEDS: clopidogrel 75mg tablet PO SCH (08:00)
[2019-05-26] MEDS: apixaban 5mg tablet PO SCH ×2 (08:00→19:55)
[2019-05-26] MEDS: vitamin D (cholecalciferol) 1,000 unit tablet PO SCH (08:00)
[2019-05-26] MEDS: calcium carbonate/vitamin D3 tablet PO SCH (08:00)
[2019-05-26] MEDS: ipratropium 0.06% nasal spray 15ml NS SCH (08:00)
[2019-05-26] MEDS: loratadine 10mg tablet PO SCH (08:00)
[2019-05-26] MEDS: ferrous sulfate 325mg tablet PO SCH (08:00)
[2019-05-26] MEDS: ascorbic acid 500mg tablet PO SCH (08:00)
[2019-05-26] MEDS: levoTHYROXINE 100mcg tablet PO SCH (08:00)
[2019-05-26] MEDS: fluocinonide 0.05% 15gm ointment TP SCH ×2 (08:00→21:39)
[2019-05-26] MEDS: fenofibrate 145mg tablet PO SCH (08:00)
[2019-05-26] MEDS: verapamil SR 180mg tablet PO SCH ×2 (08:00→21:38)
[2019-05-26] MEDS: amiodarone 200mg tablet PO SCH (08:00)
[2019-05-26] MEDS: furosemide 20MG tablet PO SCH ×2 (08:00→21:38)
[2019-05-26] MEDS: lactobacillus rhamnosus 10,000 MMU CELLS/CAPSULE PO SCH (08:00)
[2019-05-26] MEDS: acetylcysteine oral sol. 200 MG/ML 4ml vial PO SCH ×2 (08:00→21:38)
[2019-05-26] MEDS: aspirin 81mg tab.chew PO SCH (08:30)
[2019-05-26 09:24] LABS: OCCULT BLOOD STOOL POSITIVE (Neg)
[2019-05-26 11:00] VITALS: BP_SYST 115; BP_SYST 159; BP_DIAS 48; BP_DIAS 80
[2019-05-26] MEDS: hydrALAZINE 25 MG tablet PO SCH ×2 (12:00)
[2019-05-26 15:00] VITALS: BP 165/53
[2019-05-26] MEDS: ondansetron/PF 4mg/2ml inj IV PRN (16:40)
--- NOTE | 2019-05-26 17:17 | NUR ---
Patient in room PCU 3028. I have received report from Irene CROOK and had the opportunity to ask questions and assume patient care.
--- NOTE | 2019-05-26 17:17 | NUR ---
Problems reprioritized. Patient report given, questions answered & plan of care reviewed with Travis CROOK.
[2019-05-26 18:00] VITALS: BP 153/46
[2019-05-26] MEDS ORDERED: pantoprazole 40mg Tablet.DR PO SCH (20:00)
[2019-05-26] MEDS: allopurinol 100mg tablet PO SCH (21:00)
[2019-05-26] MEDS: insulin glargine (Lantus) pen - multi-dose SQ SCH (21:34)
[2019-05-26 22:00] VITALS: BP 132/74
[2019-05-27] VITALS (18 sets, daily range): BP systolic 126–180; BP diastolic 37–72
[2019-05-27] MEDS: hydrALAZINE 25 MG tablet PO SCH ×2 (01:34→12:00)
[2019-05-27] MEDS: ondansetron/PF 4mg/2ml inj IV PRN (03:54)
[2019-05-27] MEDS: HYDROmorphone 1 mg/ml syringe IV PRN ×2 (04:39→22:59)
[2019-05-27 05:14] LABS: BASOPHILS # (AUTO) 0.1 X10'3 (0-0.2); BASOPHILS % (AUTO) 0.6 % (0-1); EOSINOPHILS % (AUTO) 0.2 % (0-6); HEMATOCRIT 25.1 % (35.0-45.0); HEMOGLOBIN 8.1 g/dl (12.0-16.0); LYMPHOCYTES # (AUTO) 0.7 X10'3 (1.1-4.8); LYMPHOCYTES % (AUTO) 6.2 % (21-51); MEAN CORPUSCULAR HEMOGLOBIN 32.2 PG (27.0-31.0); MEAN CORPUSCULAR HGB CONC 32.2 g/dL (33.0-36.5); MEAN CORPUSCULAR VOLUME 100.2 FL (78-98); MONOCYTES # (AUTO) 1.2 X10'3 (0-0.9); MONOCYTES % (AUTO) 10.3 % (2-12); NEUTROPHILS # (AUTO) 9.4 X10'3 (1.8-7.7); NEUTROPHILS % (AUTO) 82.7 % (42-75); PLATELET COUNT 150 X10'3 (140-440); RED CELL DISTRIBUTION WIDTH 17.4 % (11.5-14.5); WHITE BLOOD COUNT 11.3 X10'3 (4.5-11.0)
[2019-05-27 05:34] LABS: ALBUMIN 3.6 G/DL (3.4-5.0); ANION GAP 15 (8-16); BLOOD UREA NITROGEN 98 MG/DL (7-18); BUN/CREATININE RATIO 22.8 (6.6-38.0); CALCIUM 9.5 MG/DL (8.5-10.1); CHLORIDE 95 MMOL/L (99-107); CREATININE 4.29 MG/DL (0.40-0.90); GLUCOSE 201 MG/DL (70-104); MAGNESIUM 2.2 MG/DL (1.5-2.4); POTASSIUM 3.1 MMOL/L (3.5-5.1); SODIUM 146 MMOL/L (135-145); TOTAL CARBON DIOXIDE 35.9 MMOL/L (24-32); eGFR 10 ML/MIN
--- NOTE | 2019-05-27 06:29 | NUR ---
Problems reprioritized. Patient report given, questions answered & plan of care reviewed with Allison CROOK.
--- NOTE | 2019-05-27 06:30 | NUR ---
Patient in room PCU 3028. I have received report from AMBREEN Robles and had the opportunity to ask questions and assume patient care.
--- NOTE | 2019-05-27 06:56 | NUR ---
AUDREY HELLER INFORMED OF PT A.M. LABS AND 3 MAGENTA BOWEL MOVEMENTS OVER NIGHT. PT HAS BEEN TYPE AND CROSSED NO NEW ORDERS. WE WILL FOLLOW UP WITH DR ORTIZ THIS A.M.
[2019-05-27] MEDS: traMADol 50MG tablet PO PRN (07:04)
--- NOTE | 2019-05-27 07:52 | NUR ---
I SPOKE WITH DR ORTIZ REGARDING PT MENTATION AND LABS. WE DISCUSSED MAGENTA BOWEL MOVEMENTS. ORDER FOR PROTONIX GTT AND BOLUS RECEIVED. HE WILL EVAL PT THIS A.M.
[2019-05-27] MEDS ORDERED: pantoprazole 40 MG vial IV ONE (07:55)
[2019-05-27] MEDS: budesonide 0.5mg/2ml UD nebule IH SCH ×2 (07:55→21:37)
[2019-05-27] MEDS: fluocinonide 0.05% 15gm ointment TP SCH ×2 (08:00→21:53)
[2019-05-27] MEDS: amiodarone 200mg tablet PO SCH (08:00)
[2019-05-27] MEDS: calcium carbonate/vitamin D3 tablet PO SCH (08:00)
[2019-05-27] MEDS: docusate sod 100mg capsule PO SCH ×2 (08:00→19:35)
[2019-05-27] MEDS: ferrous sulfate 325mg tablet PO SCH (08:00)
[2019-05-27] MEDS: niacin 500mg ER (Niaspan) tablet PO SCH ×2 (08:00→21:53)
[2019-05-27] MEDS: ascorbic acid 500mg tablet PO SCH (08:00)
[2019-05-27] MEDS: loratadine 10mg tablet PO SCH (08:00)
[2019-05-27] MEDS: lactobacillus rhamnosus 10,000 MMU CELLS/CAPSULE PO SCH (08:00)
[2019-05-27] MEDS: furosemide 20MG tablet PO SCH (08:00)
[2019-05-27] MEDS: anastrozole 1 MG tablet PO SCH (08:00)
[2019-05-27] MEDS: vitamin D (cholecalciferol) 1,000 unit tablet PO SCH (08:00)
[2019-05-27] MEDS: atorvastatin 20mg tablet PO SCH (08:00)
[2019-05-27] MEDS: levoTHYROXINE 100mcg tablet PO SCH (08:00)
[2019-05-27] MEDS: acetylcysteine oral sol. 200 MG/ML 4ml vial PO SCH ×2 (08:00→21:53)
[2019-05-27] MEDS: verapamil SR 180mg tablet PO SCH ×2 (08:00→21:53)
[2019-05-27] MEDS: fenofibrate 145mg tablet PO SCH (08:00)
[2019-05-27] MEDS: ipratropium 0.06% nasal spray 15ml NS SCH (08:00)
[2019-05-27] MEDS: clopidogrel 75mg tablet PO SCH (08:00)
[2019-05-27] MEDS: pantoprazole 40MG/NS 100ML BAG 100 ML IV SCH ×3 (08:36→22:06)
--- NOTE | 2019-05-27 09:30 | NUR ---
Attempted to give pt's morning medications, pt exhibiting increased somnolence. This RN unable to safely administer oral medications. neurological surgery teacher notified, rapid response called. Addendum: 05/27/19 at 1054 by Candy Davies RN Narcan administered to pt by JAMEY Posada with slight increase in pt's alertness. Pt continues to exhibit S&S confusion and impulsiveness. This RN remained with pt until sitter arrived.
--- NOTE | 2019-05-27 09:45 | NUR ---
JAMES CONCEPCION AT BEDSIDE. LABS REVIEWED. ABG TAKEN, LAC OF MEDICATIONS GIVEN FOR LAST 32 HOURS DO TO NAUSEA REVIEWED. JAMES CONCEPCION WILL INFORM DR ORTIZ WHEN SHE GOES BACK DOWN TO ICU. Addendum: 05/28/19 at 1636 by Niurka Healy RN Amended: Links added.
--- NOTE | 2019-05-27 09:47 | NUR ---
0937 PT ATTEMPTING TO GET OUT OF BED. UNABLE TO ANSWER QUESTIONS. RESTLESS. PT PLACED BACK IN BED. FACIAL COLOR ASHEN. RAPID RESPONSE CALLED. JAMES CONCEPCION AT BEDSIDE. ABG ORDERED. Addendum: 05/27/19 at 0953 by Candy Davies RN RT [place]ak & RT student & instructor present. ABG obtained. Addendum: 05/27/19 at 1011 by Niurka Healy RN JAMES CONCEPCION WILL INFORM DR ORTIZ OF ABG, AND NARCAN RESULTS. PT BS 150. PT REMAINS SOMNOLENT, NARCAN BEING GIVEN PT RECEIVED DILAUDID IV AT 0400.
[2019-05-27 10:00] LABS: ABG BASE EXCESS 15.4 mmol/L (-2.0-3.0); ABG HCO3 40.5 mmol/L (22.0-26.0); ABG OXYGEN SATURATION 96.9 % (95-98); ABG PCO2 (T) 54.7 mmHg (35.0-45.0); ABG PH (T) 7.487 (7.350-7.450); ABG PO2 (T) 101.1 mmHg (83-108); ALLEN'S TEST Positive; FCOHb 0.7 % (0.5-1.5); FLOW 5 L/min; FMetHb 0.3 % (0.3-1.12); FO2Hb 95.9 % (94-100); TOTAL HEMOGLOBIN 7.7 G/dl (12.0-16.0)
[2019-05-27] MEDS ORDERED: naloxone 0.4 mg/ml inj ONE (10:06)
--- NOTE | 2019-05-27 11:05 | NUR ---
PT SLEEPING NOW. SITTER AT BEDSIDE FOR CLOSER OBSERVATION.
[2019-05-27] MEDS ORDERED: MIDAZolam 5mg/5ml vial ONE (13:04)
[2019-05-27] MEDS ORDERED: fentaNYL/PF 50MCG/1 ML 2ML syringe ONE ×2 (13:04→16:06)
[2019-05-27] MEDS ORDERED: LIDOcaine Viscous 15ml cup ONE (13:05)
--- NOTE | 2019-05-27 13:06 | NUR ---
Pt transported out of room to GI lab for EGD via [facility].
--- NOTE | 2019-05-27 14:55 | NUR ---
Pt returned to room from GI lab via gurney. Pt transferred back to bed without difficulty. Tory care provided after loose, dark red stool. Vital signs obtained, at bedside. Will continue to closely monitor.
[2019-05-27] MEDS ORDERED: LIDOcaine 1%/PF 5ML 10 MG/ML VIAL ONE (15:25)
--- NOTE | 2019-05-27 15:50 | NUR ---
Pt transported out of room to angio suite.
[2019-05-27] MEDS ORDERED: heparin 1,000unit/ml 10ml vial 10 ML ONE (16:06)
--- NOTE | 2019-05-27 16:36 | NUR ---
Phoned Dr. Shah to request additional H&H. Order received.
--- NOTE | 2019-05-27 17:15 | NUR ---
Pt returned to room from angio suite s/p TDC placement. Profuse bleeding from TDC insertion site, RN from IR replaced dressing and applied sandbag. Upon checking on pt after 15 minutes, additional bleeding from insertion site noted. Site cleaned and redressed, sandbag re-applied. Will continue to closely monitor.
[2019-05-27 17:34] LABS: HEMOGLOBIN 7.3 g/dl (12.0-16.0); MEAN CORPUSCULAR HEMOGLOBIN 32.9 PG (27.0-31.0); MEAN CORPUSCULAR HGB CONC 33.1 g/dL (33.0-36.5); MEAN CORPUSCULAR VOLUME 99.4 FL (78-98); MEAN PLATELET VOLUME 10.1 FL (7.4-10.4); PLATELET COUNT 120 X10'3 (140-440); RED BLOOD COUNT 2.21 X10'6 (4.20-5.60); RED CELL DISTRIBUTION WIDTH 17.3 % (11.5-14.5); WHITE BLOOD COUNT 9.9 X10'3 (4.5-11.0)
--- NOTE | 2019-05-27 17:46 | NUR ---
Called Dr. Shah to report critical H&H. Type & cross plus 1 unit of blood to be given with dialysis ordered.
[2019-05-27 18:17] LABS: FERRITIN 1251 NG/ML (8-252)
--- NOTE | 2019-05-27 18:17 | NUR ---
Problems reprioritized. Patient report given, questions answered & plan of care reviewed with AMBREEN Robles.
--- NOTE | 2019-05-27 18:34 | NUR ---
Patient in room PCU 3016. I have received report from Allison CROOK and had the opportunity to ask questions and assume patient care.
[2019-05-27 18:39] LABS: % IRON SATURATION 35 % (11-46); IRON 121 UG/DL (49-151); TOTAL IRON BINDING CAPACITY 346 UG/DL (259-388)
--- NOTE | 2019-05-27 18:40 | NUR ---
Patient in room PCU 3016. I have received report from Allison CROOK and had the opportunity to ask questions and assume patient care.
[2019-05-27] MEDS ORDERED: hydrALAZINE 20mg/ml inj. IV PRN (19:50)
[2019-05-27] MEDS: furosemide 40mg/4ml inj IV SCH (20:34)
[2019-05-27] MEDS: potassium CL 10mEq/100ml bag 100 ML IV PRN ×2 (20:45→22:09)
[2019-05-27] MEDS: allopurinol 100mg tablet PO SCH (21:00)
[2019-05-27] MEDS: insulin glargine (Lantus) pen - multi-dose SQ SCH (23:10)
[2019-05-28] VITALS (9 sets, daily range): BP systolic 89–167; BP diastolic 44–84
[2019-05-28] MEDS: HYDROmorphone 1 mg/ml syringe IV PRN (03:13)
[2019-05-28] MEDS: pantoprazole 40MG/NS 100ML BAG 100 ML IV SCH ×5 (04:01→22:57)
[2019-05-28 05:46] LABS: ALBUMIN 3.8 G/DL (3.4-5.0); ANION GAP 12 (8-16); BLOOD UREA NITROGEN 108 MG/DL (7-18); BUN/CREATININE RATIO 25.4 (6.6-38.0); CALCIUM 9.7 MG/DL (8.5-10.1); CHLORIDE 99 MMOL/L (99-107); CREATININE 4.25 MG/DL (0.40-0.90); GLUCOSE 153 MG/DL (70-104); MAGNESIUM 2.4 MG/DL (1.5-2.4); PHOSPHORUS 3.1 MG/DL (2.3-4.5); SODIUM 151 MMOL/L (135-145); TOTAL CARBON DIOXIDE 39.6 MMOL/L (24-32); eGFR 10 ML/MIN
[2019-05-28 05:50] LABS: POTASSIUM 2.9 MMOL/L (3.5-5.1)
[2019-05-28 06:03] LABS: BASOPHILS % (AUTO) 0.4 % (0-1); EOSINOPHILS % (AUTO) 0.1 % (0-6); HEMATOCRIT 23.9 % (35.0-45.0); HEMOGLOBIN 7.8 g/dl (12.0-16.0); LYMPHOCYTES # (AUTO) 0.6 X10'3 (1.1-4.8); MEAN CORPUSCULAR HEMOGLOBIN 32.5 PG (27.0-31.0); MEAN CORPUSCULAR HGB CONC 32.7 g/dL (33.0-36.5); MEAN CORPUSCULAR VOLUME 99.4 FL (78-98); MONOCYTES # (AUTO) 1.2 X10'3 (0-0.9); MONOCYTES % (AUTO) 10.5 % (2-12); NEUTROPHILS # (AUTO) 9.7 X10'3 (1.8-7.7); PLATELET COUNT 161 X10'3 (140-440); RED CELL DISTRIBUTION WIDTH 17.5 % (11.5-14.5); WHITE BLOOD COUNT 11.5 X10'3 (4.5-11.0)
[2019-05-28] MEDS: potassium CL 10mEq/100ml bag 100 ML IV PRN (06:06)
--- NOTE | 2019-05-28 06:20 | NUR ---
Patient in room PCU 3016. I have received report from Jose CROOK and had the opportunity to ask questions and assume patient care.
--- NOTE | 2019-05-28 06:28 | NUR ---
Problems reprioritized. Patient report given, questions answered & plan of care reviewed with Arnav CROOK.
[2019-05-28] MEDS ORDERED: heparin 1,000unit/ml 10ml vial 10 ML IV ONE (08:00)
[2019-05-28] MEDS ORDERED: normal saline 1000ml 250 ML IV PRN (08:00)
[2019-05-28] MEDS ORDERED: heparin 1,000 units/ml 10ml inj HE ONE ×2 (08:00)
[2019-05-28] MEDS ORDERED: epoetin 20,000 units/ml inj IV ONE (08:00)
[2019-05-28] MEDS: budesonide 0.5mg/2ml UD nebule IH SCH ×2 (08:42→19:26)
[2019-05-28] MEDS: vitamin D (cholecalciferol) 1,000 unit tablet PO SCH (08:57)
[2019-05-28] MEDS: fenofibrate 145mg tablet PO SCH (08:57)
[2019-05-28] MEDS: furosemide 40mg/4ml inj IV SCH ×2 (08:57→20:32)
[2019-05-28] MEDS: docusate sod 100mg capsule PO SCH ×2 (08:57→20:33)
[2019-05-28] MEDS: amiodarone 200mg tablet PO SCH (08:57)
[2019-05-28] MEDS: calcium carbonate/vitamin D3 tablet PO SCH (08:57)
[2019-05-28] MEDS: atorvastatin 20mg tablet PO SCH (08:57)
[2019-05-28] MEDS: clopidogrel 75mg tablet PO SCH (08:57)
[2019-05-28] MEDS: fluocinonide 0.05% 15gm ointment TP SCH ×2 (08:58→20:51)
[2019-05-28] MEDS: anastrozole 1 MG tablet PO SCH (08:58)
[2019-05-28] MEDS: ascorbic acid 500mg tablet PO SCH (08:58)
[2019-05-28] MEDS: ferrous sulfate 325mg tablet PO SCH (08:58)
[2019-05-28] MEDS: verapamil SR 180mg tablet PO SCH ×2 (08:59→20:33)
[2019-05-28] MEDS: niacin 500mg ER (Niaspan) tablet PO SCH ×2 (08:59→20:33)
[2019-05-28] MEDS: acetylcysteine oral sol. 200 MG/ML 4ml vial PO SCH ×2 (08:59→20:33)
[2019-05-28] MEDS: ipratropium 0.06% nasal spray 15ml NS SCH (09:00)
[2019-05-28] MEDS: loratadine 10mg tablet PO SCH (12:00)
[2019-05-28] MEDS: levoTHYROXINE 100mcg tablet PO SCH (12:00)
[2019-05-28] MEDS: lactobacillus rhamnosus 10,000 MMU CELLS/CAPSULE PO SCH (12:00)
[2019-05-28 13:38] LABS: MEAN CORPUSCULAR HEMOGLOBIN 32.9 PG (27.0-31.0); MEAN CORPUSCULAR HGB CONC 33.4 g/dL (33.0-36.5); MEAN CORPUSCULAR VOLUME 98.4 FL (78-98); MEAN PLATELET VOLUME 9.7 FL (7.4-10.4); PLATELET COUNT 143 X10'3 (140-440); RED BLOOD COUNT 2.74 X10'6 (4.20-5.60); RED CELL DISTRIBUTION WIDTH 18.7 % (11.5-14.5); WHITE BLOOD COUNT 12.3 X10'3 (4.5-11.0)
[2019-05-28 15:01] LABS: CLARITY,URINE CLEAR (Clear); COLOR,URINE YELLOW (Yellow); GLUCOSE, URINE NEGATIVE (Neg); KETONES,URINE NEGATIVE (Neg); LEUKOCYTE ESTERASE ,URINE NEGATIVE (Neg); NITRITES, URINE NEGATIVE (Neg); OCCULT BLOOD,URINE NEGATIVE (Neg); PROTEIN,URINE NEGATIVE (Neg); UROBILINOGEN,URINE 0.2 E.U/dL (0.2-1.0)
[2019-05-28 15:06] LABS: UA COLLECTION TYPE VOIDED
--- NOTE | 2019-05-28 18:27 | NUR ---
Problems reprioritized. Patient report given, questions answered & plan of care reviewed with Ligia CROOK.
[2019-05-28 19:16] LABS: HEMATOCRIT 24.5 % (35.0-45.0); HEMOGLOBIN 8.1 g/dl (12.0-16.0); MEAN CORPUSCULAR HEMOGLOBIN 32.6 PG (27.0-31.0); MEAN CORPUSCULAR HGB CONC 33.2 g/dL (33.0-36.5); MEAN CORPUSCULAR VOLUME 98.1 FL (78-98); MEAN PLATELET VOLUME 9.4 FL (7.4-10.4); PLATELET COUNT 126 X10'3 (140-440); RED BLOOD COUNT 2.49 X10'6 (4.20-5.60); RED CELL DISTRIBUTION WIDTH 18.7 % (11.5-14.5); WHITE BLOOD COUNT 10.7 X10'3 (4.5-11.0)
[2019-05-28] MEDS: allopurinol 100mg tablet PO SCH (20:33)
[2019-05-28] MEDS: insulin glargine (Lantus) pen - multi-dose SQ SCH (22:00)
[2019-05-29] VITALS (7 sets, daily range): BP systolic 119–170; BP diastolic 40–93
--- NOTE | 2019-05-29 01:00 | NUR ---
RIGHT NECK DRESSING STILL WITH BLOODY DRAINAGE CHANGED OUT--DIALYSIS CATH CONTINUES TO OOZE BLOOD--REINFORCED
[2019-05-29 01:31] LABS: HEMATOCRIT 24.4 % (35.0-45.0); MEAN CORPUSCULAR HEMOGLOBIN 31.9 PG (27.0-31.0); MEAN CORPUSCULAR HGB CONC 32.8 g/dL (33.0-36.5); MEAN CORPUSCULAR VOLUME 97.4 FL (78-98); MEAN PLATELET VOLUME 8.7 FL (7.4-10.4); PLATELET COUNT 135 X10'3 (140-440); RED CELL DISTRIBUTION WIDTH 18.7 % (11.5-14.5); WHITE BLOOD COUNT 10.4 X10'3 (4.5-11.0)
[2019-05-29] MEDS: pantoprazole 40MG/NS 100ML BAG 100 ML IV SCH ×2 (03:38→10:01)
--- NOTE | 2019-05-29 07:05 | NUR ---
Patient in room PCU 3016. I have received report from AMBREEN Strong and had the opportunity to ask questions and assume patient care.
[2019-05-29 07:17] LABS: HBSAG SCREEN Negative (Negative)
[2019-05-29] MEDS: fluocinonide 0.05% 15gm ointment TP SCH ×2 (08:00→20:00)
[2019-05-29] MEDS: loratadine 10mg tablet PO SCH (08:11)
[2019-05-29] MEDS: docusate sod 100mg capsule PO SCH ×2 (08:11→21:10)
[2019-05-29] MEDS: verapamil SR 180mg tablet PO SCH ×2 (08:11→21:10)
[2019-05-29] MEDS: ferrous sulfate 325mg tablet PO SCH (08:12)
[2019-05-29] MEDS: lactobacillus rhamnosus 10,000 MMU CELLS/CAPSULE PO SCH (08:12)
[2019-05-29] MEDS: amiodarone 200mg tablet PO SCH (08:12)
[2019-05-29] MEDS: levoTHYROXINE 100mcg tablet PO SCH (08:13)
[2019-05-29] MEDS: niacin 500mg ER (Niaspan) tablet PO SCH ×2 (08:13→21:09)
[2019-05-29] MEDS: fenofibrate 145mg tablet PO SCH (08:13)
[2019-05-29] MEDS: calcium carbonate/vitamin D3 tablet PO SCH (08:13)
[2019-05-29] MEDS: atorvastatin 20mg tablet PO SCH (08:18)
[2019-05-29] MEDS: ascorbic acid 500mg tablet PO SCH (08:19)
[2019-05-29] MEDS: vitamin D (cholecalciferol) 1,000 unit tablet PO SCH (08:23)
[2019-05-29] MEDS: ipratropium 0.06% nasal spray 15ml NS SCH (08:38)
--- NOTE | 2019-05-29 08:55 | NUR ---
spoke with PINA Knutson she ordered additional labs, wait to give am lasix until after labs result.
[2019-05-29] MEDS: budesonide 0.5mg/2ml UD nebule IH SCH ×2 (09:10→19:15)
[2019-05-29 10:15] LABS: HEMATOCRIT 23.3 % (35.0-45.0); HEMOGLOBIN 7.7 g/dl (12.0-16.0); MEAN CORPUSCULAR HEMOGLOBIN 32.3 PG (27.0-31.0); MEAN CORPUSCULAR HGB CONC 33.2 g/dL (33.0-36.5); MEAN CORPUSCULAR VOLUME 97.3 FL (78-98); MEAN PLATELET VOLUME 9.1 FL (7.4-10.4); PLATELET COUNT 147 X10'3 (140-440); RED BLOOD COUNT 2.39 X10'6 (4.20-5.60); RED CELL DISTRIBUTION WIDTH 18.6 % (11.5-14.5); WHITE BLOOD COUNT 10.9 X10'3 (4.5-11.0)
[2019-05-29 10:38] LABS: ALANINE AMINOTRANSFERASE 28 U/L (12-78); ALBUMIN 3.1 G/DL (3.4-5.0); ALBUMIN/GLOBULIN RATIO 1.1 (1.1-1.5); ALKALINE PHOSPHATASE 30 IU/L (46-116); ANION GAP 11 (8-16); ASPARTATE AMINO TRANSFERASE 57 U/L (10-37); BILIRUBIN,TOTAL 1.5 MG/DL (0.1-1.0); BLOOD UREA NITROGEN 70 MG/DL (7-18); BUN/CREATININE RATIO 21.7 (6.6-38.0); CALCIUM 8.8 MG/DL (8.5-10.1); CHLORIDE 103 MMOL/L (99-107); CREATININE 3.23 MG/DL (0.40-0.90); GLUCOSE 160 MG/DL (70-104); MAGNESIUM 2.1 MG/DL (1.5-2.4); SODIUM 145 MMOL/L (135-145); TOTAL CARBON DIOXIDE 31.3 MMOL/L (24-32); eGFR 14 ML/MIN
[2019-05-29 10:40] LABS: POTASSIUM 2.8 MMOL/L (3.5-5.1)
--- NOTE | 2019-05-29 10:40 | NUR ---
CRITICAL LAB VALUE TAKEN, PRIMARY RN NOTIFIED.
--- NOTE | 2019-05-29 10:45 | NUR ---
PINA Knutson notified of critical K 2.8, h/h 7.7 23.3 per Dasha give potassium 40meq now and 40meq at 1600. admin am lasix now per Dasha. she said pt will probably get a unit of blood with dialysis today.
[2019-05-29] MEDS ORDERED: potassium Cl 20 mEq SR tablet PO STA (10:47)
[2019-05-29] MEDS ORDERED: heparin 1,000unit/ml 10ml vial 10 ML IV ONE (11:06)
[2019-05-29] MEDS ORDERED: normal saline 1000ml 250 ML IV PRN (11:06)
[2019-05-29] MEDS ORDERED: epoetin 20,000 units/ml inj IV ONE (11:10)
[2019-05-29] MEDS ORDERED: potassium bicarbonate/cit acid 25mEq tablet.effervescent PO ONE (11:10)
[2019-05-29] MEDS ORDERED: heparin 1,000 units/ml 10ml inj HE ONE ×2 (11:10)
[2019-05-29] MEDS: furosemide 40mg/4ml inj IV SCH ×2 (11:13→21:03)
[2019-05-29] MEDS: ondansetron/PF 4mg/2ml inj IV PRN (11:36)
[2019-05-29] MEDS: acetylcysteine oral sol. 200 MG/ML 4ml vial PO SCH ×2 (12:03→21:08)
[2019-05-29] MEDS: anastrozole 1 MG tablet PO SCH (12:03)
[2019-05-29 12:57] LABS: HEMATOCRIT 23.1 % (35.0-45.0); HEMOGLOBIN 7.7 g/dl (12.0-16.0); MEAN CORPUSCULAR HEMOGLOBIN 32.8 PG (27.0-31.0); MEAN CORPUSCULAR HGB CONC 33.3 g/dL (33.0-36.5); MEAN CORPUSCULAR VOLUME 98.4 FL (78-98); MEAN PLATELET VOLUME 8.9 FL (7.4-10.4); PLATELET COUNT 143 X10'3 (140-440); RED BLOOD COUNT 2.34 X10'6 (4.20-5.60); RED CELL DISTRIBUTION WIDTH 18.5 % (11.5-14.5); WHITE BLOOD COUNT 9.7 X10'3 (4.5-11.0)
--- NOTE | 2019-05-29 13:02 | NUR ---
SPOKE WITH REVA SLADE LET HER KNOW THAT PT DID NOT TOLERATE K LYTE EFFERVESCENT HAD A SIP OF IT AND VOMITED IT UP. PT HAD DARK STOOL.
[2019-05-29] MEDS ORDERED: potassium Cl 20 mEq SR tablet PO ONE ×2 (16:00→17:30)
--- NOTE | 2019-05-29 16:00 | NUR ---
spoke with dialysis nurse and she will put the gelfoam dressing on right chest when she does dialysis
--- NOTE | 2019-05-29 16:09 | NUR ---
spoke with aiden campbell she said to change time on potassium 40 to give with dinner
--- NOTE | 2019-05-29 17:58 | NUR ---
Orientee documentation: I have reviewed and agree with all interventions, assessments performed and documented by AMBREEN Keating.
--- NOTE | 2019-05-29 18:15 | NUR ---
Patient in room PCU 3016. I have received report from Annalisa CROOK and had the opportunity to ask questions and assume patient care.
--- NOTE | 2019-05-29 18:18 | NUR ---
Problems reprioritized. Patient report given, questions answered & plan of care reviewed with AMBREEN Matias.
[2019-05-29 20:08] LABS: HEMATOCRIT 23.9 % (35.0-45.0); HEMOGLOBIN 7.8 g/dl (12.0-16.0); MEAN CORPUSCULAR HEMOGLOBIN 32.4 PG (27.0-31.0); MEAN CORPUSCULAR HGB CONC 32.8 g/dL (33.0-36.5); MEAN CORPUSCULAR VOLUME 98.5 FL (78-98); MEAN PLATELET VOLUME 8.8 FL (7.4-10.4); PLATELET COUNT 141 X10'3 (140-440); RED BLOOD COUNT 2.42 X10'6 (4.20-5.60); RED CELL DISTRIBUTION WIDTH 18.5 % (11.5-14.5); WHITE BLOOD COUNT 9.4 X10'3 (4.5-11.0)
[2019-05-29] MEDS: pantoprazole 40mg Tablet.DR PO SCH (21:09)
[2019-05-29] MEDS: allopurinol 100mg tablet PO SCH (21:09)
[2019-05-29] MEDS: insulin glargine (Lantus) pen - multi-dose SQ SCH (21:15)
[2019-05-29] MEDS: acetaminophen 325mg/10.15ml oral unit dose solution PO PRN (21:34)
[2019-05-30 02:00] VITALS: BP 149/75
[2019-05-30 06:00] VITALS: BP 178/69
--- NOTE | 2019-05-30 06:34 | NUR ---
Problems reprioritized. Patient report given, questions answered & plan of care reviewed with Ernesto RN and Jasmine RN.
--- NOTE | 2019-05-30 06:47 | NUR ---
Patient in room PCU 3016. I have received report from AMBREEN HARDING and had the opportunity to ask questions and assume patient care.
[2019-05-30 07:02] LABS: BASOPHILS % (AUTO) 0.3 % (0-1); EOSINOPHILS % (AUTO) 0.3 % (0-6); HEMATOCRIT 24.1 % (35.0-45.0); HEMOGLOBIN 7.9 g/dl (12.0-16.0); LYMPHOCYTES % (AUTO) 7.9 % (21-51); MEAN CORPUSCULAR HEMOGLOBIN 32.4 PG (27.0-31.0); MEAN CORPUSCULAR HGB CONC 32.9 g/dL (33.0-36.5); MEAN CORPUSCULAR VOLUME 98.5 FL (78-98); MEAN PLATELET VOLUME 8.9 FL (7.4-10.4); MONOCYTES # (AUTO) 1.7 X10'3 (0-0.9); MONOCYTES % (AUTO) 12.9 % (2-12); NEUTROPHILS # (AUTO) 10.4 X10'3 (1.8-7.7); NEUTROPHILS % (AUTO) 78.6 % (42-75); PLATELET COUNT 142 X10'3 (140-440); RED BLOOD COUNT 2.45 X10'6 (4.20-5.60); RED CELL DISTRIBUTION WIDTH 18.7 % (11.5-14.5); WHITE BLOOD COUNT 13.2 X10'3 (4.5-11.0)
[2019-05-30 07:46] LABS: ALANINE AMINOTRANSFERASE 31 U/L (12-78); ALBUMIN 3.3 G/DL (3.4-5.0); ALBUMIN/GLOBULIN RATIO 1.1 (1.1-1.5); ALKALINE PHOSPHATASE 33 IU/L (46-116); ANION GAP 11 (8-16); ASPARTATE AMINO TRANSFERASE 62 U/L (10-37); BILIRUBIN,TOTAL 0.9 MG/DL (0.1-1.0); BLOOD UREA NITROGEN 37 MG/DL (7-18); CALCIUM 8.9 MG/DL (8.5-10.1); CHLORIDE 103 MMOL/L (99-107); CREATININE 2.46 MG/DL (0.40-0.90); GLUCOSE 131 MG/DL (70-104); MAGNESIUM 1.8 MG/DL (1.5-2.4); POTASSIUM 4.4 MMOL/L (3.5-5.1); SODIUM 144 MMOL/L (135-145); TOTAL CARBON DIOXIDE 29.7 MMOL/L (24-32); TOTAL PROTEIN 6.3 G/DL (6.4-8.2); eGFR 19 ML/MIN
[2019-05-30] MEDS: verapamil SR 180mg tablet PO SCH ×2 (07:58→19:12)
[2019-05-30] MEDS: ferrous sulfate 325mg tablet PO SCH (07:58)
[2019-05-30] MEDS: atorvastatin 20mg tablet PO SCH (07:58)
[2019-05-30] MEDS: vitamin D (cholecalciferol) 1,000 unit tablet PO SCH (07:59)
[2019-05-30] MEDS: ascorbic acid 500mg tablet PO SCH (07:59)
[2019-05-30] MEDS ORDERED: heparin 1,000unit/ml 10ml vial 10 ML IV ONE (08:00)
[2019-05-30] MEDS: calcium carbonate/vitamin D3 tablet PO SCH (08:00)
[2019-05-30] MEDS ORDERED: heparin 1,000 units/ml 10ml inj HE ONE ×2 (08:00)
[2019-05-30] MEDS: fluocinonide 0.05% 15gm ointment TP SCH ×2 (08:00→19:15)
[2019-05-30] MEDS: pantoprazole 40mg Tablet.DR PO SCH ×2 (08:00→19:12)
[2019-05-30] MEDS: loratadine 10mg tablet PO SCH (08:00)
[2019-05-30] MEDS: niacin 500mg ER (Niaspan) tablet PO SCH ×2 (08:00→19:12)
[2019-05-30] MEDS: lactobacillus rhamnosus 10,000 MMU CELLS/CAPSULE PO SCH (08:00)
[2019-05-30] MEDS ORDERED: epoetin 20,000 units/ml inj IV ONE (08:00)
[2019-05-30] MEDS: amiodarone 200mg tablet PO SCH (08:00)
[2019-05-30] MEDS: levoTHYROXINE 100mcg tablet PO SCH (08:00)
[2019-05-30] MEDS: docusate sod 100mg capsule PO SCH ×2 (08:00→19:14)
[2019-05-30] MEDS ORDERED: normal saline 1000ml 100 ML IV PRN (08:00)
[2019-05-30] MEDS: fenofibrate 145mg tablet PO SCH (08:00)
[2019-05-30] MEDS ORDERED: normal saline 1000ml 250 ML IV PRN (08:00)
[2019-05-30 08:01] LABS: PHOSPHORUS 1.2 MG/DL (2.3-4.5)
[2019-05-30] MEDS: anastrozole 1 MG tablet PO SCH (08:01)
[2019-05-30] MEDS: ipratropium 0.06% nasal spray 15ml NS SCH (08:01)
[2019-05-30] MEDS: furosemide 40mg/4ml inj IV SCH ×2 (08:07→19:12)
[2019-05-30 08:08] LABS: NUCLEATED RED BLOOD CELLS 4 /100WBC (0-0); TOTAL CELLS COUNTED 100
[2019-05-30 08:09] LABS: ANISOCYTOSIS 2+; PLATELET ESTIMATE NORMAL
[2019-05-30 08:10] LABS: HYPOCHROMASIA 1+; POLYCHROMASIA 2+; STOMATOCYTES 1+
[2019-05-30] MEDS: acetylcysteine oral sol. 200 MG/ML 4ml vial PO SCH ×2 (08:15→20:00)
[2019-05-30] MEDS: budesonide 0.5mg/2ml UD nebule IH SCH ×2 (08:26→19:56)
[2019-05-30] MEDS ORDERED: sodium phosphate inj. 30 MMOL in dextrose 5%-water 250 ML IV ONE (08:45)
[2019-05-30] MEDS: insulin Lispro (HumaLOG) vial - multi-dose SQ SCH (08:51)
[2019-05-30 11:00] VITALS: BP 158/54
[2019-05-30 12:17] LABS: HEMOGLOBIN 7.6 g/dl (12.0-16.0); MEAN CORPUSCULAR HEMOGLOBIN 32.3 PG (27.0-31.0); MEAN CORPUSCULAR HGB CONC 32.8 g/dL (33.0-36.5); MEAN CORPUSCULAR VOLUME 98.2 FL (78-98); MEAN PLATELET VOLUME 8.6 FL (7.4-10.4); PLATELET COUNT 144 X10'3 (140-440); RED BLOOD COUNT 2.35 X10'6 (4.20-5.60); WHITE BLOOD COUNT 12.1 X10'3 (4.5-11.0)
[2019-05-30] MEDS ORDERED: diphenhydrAMINE 25mg capsule PO PRN (13:45)
[2019-05-30] MEDS ORDERED: diphenhydrAMINE 50 mg/ml inj IV PRN (13:45)
--- NOTE | 2019-05-30 14:02 | NUR ---
PANEL MACHINE TENDERmachine edge bander: I have reviewed and agree with all interventions, assessments performed and documented by AMBREEN DONATO.
[2019-05-30 15:00] VITALS: BP 136/60
--- NOTE | 2019-05-30 18:15 | NUR ---
Patient in room PCU 3016. I have received report from Arnav RN and Jasmine RN and had the opportunity to ask questions and assume patient care.
--- NOTE | 2019-05-30 18:20 | NUR ---
Problems reprioritized. Patient report given, questions answered & plan of care reviewed with Polly CROOK.
[2019-05-30 19:00] VITALS: BP 151/64
[2019-05-30] MEDS: traMADol 50MG tablet PO PRN (19:13)
[2019-05-30 19:30] LABS: HEMATOCRIT 26.7 % (35.0-45.0); HEMOGLOBIN 8.7 g/dl (12.0-16.0); MEAN CORPUSCULAR HEMOGLOBIN 32.5 PG (27.0-31.0); MEAN CORPUSCULAR HGB CONC 32.7 g/dL (33.0-36.5); MEAN CORPUSCULAR VOLUME 99.6 FL (78-98); MEAN PLATELET VOLUME 9.6 FL (7.4-10.4); PLATELET COUNT 152 X10'3 (140-440); RED BLOOD COUNT 2.68 X10'6 (4.20-5.60); RED CELL DISTRIBUTION WIDTH 18.2 % (11.5-14.5); WHITE BLOOD COUNT 13.4 X10'3 (4.5-11.0)
[2019-05-30] MEDS: allopurinol 100mg tablet PO SCH (21:09)
[2019-05-30] MEDS: insulin glargine (Lantus) pen - multi-dose SQ SCH (21:09)
[2019-05-30 23:00] VITALS: BP 152/56
[2019-05-31 03:00] VITALS: BP 168/61
[2019-05-31 06:00] VITALS: BP 115/58
--- NOTE | 2019-05-31 06:00 | NUR ---
Patient in room PCU 3016. I have received report from AMBREEN Matias and had the opportunity to ask questions and assume patient care.
[2019-05-31 06:12] LABS: BASOPHILS # (AUTO) 0.1 X10'3 (0-0.2); BASOPHILS % (AUTO) 0.5 % (0-1); EOSINOPHILS # (AUTO) 0.2 X10'3 (0-0.9); EOSINOPHILS % (AUTO) 1.5 % (0-6); HEMOGLOBIN 8.1 g/dl (12.0-16.0); LYMPHOCYTES # (AUTO) 0.9 X10'3 (1.1-4.8); LYMPHOCYTES % (AUTO) 8.2 % (21-51); MEAN CORPUSCULAR HEMOGLOBIN 32.3 PG (27.0-31.0); MEAN CORPUSCULAR HGB CONC 32.5 g/dL (33.0-36.5); MEAN CORPUSCULAR VOLUME 99.4 FL (78-98); MEAN PLATELET VOLUME 8.9 FL (7.4-10.4); MONOCYTES # (AUTO) 1.5 X10'3 (0-0.9); MONOCYTES % (AUTO) 13.4 % (2-12); NEUTROPHILS # (AUTO) 8.7 X10'3 (1.8-7.7); NEUTROPHILS % (AUTO) 76.4 % (42-75); PLATELET COUNT 154 X10'3 (140-440); RED BLOOD COUNT 2.52 X10'6 (4.20-5.60); RED CELL DISTRIBUTION WIDTH 18.1 % (11.5-14.5); WHITE BLOOD COUNT 11.4 X10'3 (4.5-11.0)
--- NOTE | 2019-05-31 06:55 | NUR ---
Patient in room PCU 3016. I have received report from AMBREEN HARDING and had the opportunity to ask questions and assume patient care.
[2019-05-31 07:01] LABS: ALANINE AMINOTRANSFERASE 31 U/L (12-78); ALBUMIN 3.1 G/DL (3.4-5.0); ALKALINE PHOSPHATASE 36 IU/L (46-116); ANION GAP 12 (8-16); ASPARTATE AMINO TRANSFERASE 60 U/L (10-37); BILIRUBIN,TOTAL 0.8 MG/DL (0.1-1.0); BLOOD UREA NITROGEN 19 MG/DL (7-18); BUN/CREATININE RATIO 9.6 (6.6-38.0); CALCIUM 8.3 MG/DL (8.5-10.1); CHLORIDE 101 MMOL/L (99-107); CREATININE 1.98 MG/DL (0.40-0.90); GLUCOSE 121 MG/DL (70-104); MAGNESIUM 1.7 MG/DL (1.5-2.4); PHOSPHORUS 2.3 MG/DL (2.3-4.5); SODIUM 140 MMOL/L (135-145); TOTAL CARBON DIOXIDE 27.1 MMOL/L (24-32); TOTAL PROTEIN 6.2 G/DL (6.4-8.2); eGFR 25 ML/MIN
[2019-05-31 07:12] LABS: POTASSIUM 3.3 MMOL/L (3.5-5.1)
[2019-05-31 07:15] LABS: ANISOCYTOSIS 2+; NUCLEATED RED BLOOD CELLS 4 /100WBC (0-0); PLATELET ESTIMATE NORMAL; TOTAL CELLS COUNTED 100
[2019-05-31 07:16] LABS: POLYCHROMASIA 3+
[2019-05-31] MEDS: fluocinonide 0.05% 15gm ointment TP SCH (08:00)
[2019-05-31] MEDS: acetylcysteine oral sol. 200 MG/ML 4ml vial PO SCH (08:00)
[2019-05-31] MEDS: insulin Lispro (HumaLOG) vial - multi-dose SQ SCH ×2 (08:24→13:25)
[2019-05-31] MEDS: atorvastatin 20mg tablet PO SCH (09:02)
[2019-05-31] MEDS: fenofibrate 145mg tablet PO SCH (09:02)
[2019-05-31] MEDS: ferrous sulfate 325mg tablet PO SCH (09:02)
[2019-05-31] MEDS: pantoprazole 40mg Tablet.DR PO SCH (09:02)
[2019-05-31] MEDS: calcium carbonate/vitamin D3 tablet PO SCH (09:03)
[2019-05-31] MEDS: docusate sod 100mg capsule PO SCH (09:03)
[2019-05-31] MEDS: niacin 500mg ER (Niaspan) tablet PO SCH (09:03)
[2019-05-31] MEDS: lactobacillus rhamnosus 10,000 MMU CELLS/CAPSULE PO SCH (09:03)
[2019-05-31] MEDS: verapamil SR 180mg tablet PO SCH (09:03)
[2019-05-31] MEDS: loratadine 10mg tablet PO SCH (09:03)
[2019-05-31] MEDS: ipratropium 0.06% nasal spray 15ml NS SCH (09:04)
[2019-05-31] MEDS: amiodarone 200mg tablet PO SCH (09:04)
[2019-05-31] MEDS: levoTHYROXINE 100mcg tablet PO SCH (09:04)
[2019-05-31] MEDS: furosemide 40mg/4ml inj IV SCH (09:05)
[2019-05-31] MEDS: anastrozole 1 MG tablet PO SCH (09:05)
[2019-05-31] MEDS: ascorbic acid 500mg tablet PO SCH (09:06)
[2019-05-31] MEDS: vitamin D (cholecalciferol) 1,000 unit tablet PO SCH (09:23)
[2019-05-31] MEDS: budesonide 0.5mg/2ml UD nebule IH SCH (09:59)
[2019-05-31 11:00] VITALS: BP 177/65
--- NOTE | 2019-05-31 11:34 | NUR ---
RETURNED FROM [facility] VIA WC. ASSESSMENT UNCHANGED RETORT FIREMAN TO GET VS.
--- NOTE | 2019-05-31 12:25 | NUR ---
Reassessment: Patient's PO intake decreased to 0% x 4 days. Per RN notes pt not feeling well during that time with emesis and increased somnolence. Pt s/p rapid response 05/27 per RN notes. Pt now documented with 75-100% PO intake meeting nutrient needs with no GI symptoms. LBM 05/29, receiving routine Colace. Per MD notes pt is getting outpatient dialysis arranged. Will continue to follow. Recommendations: 1) Continue renal diet with fluid restriction per MD 2) Monitor BG levels and need for addition of CHO controlled diet 3) Routine bowel care 4) Wt per rx Addendum: 05/31/19 at [address] Amended: Links added.
[2019-05-31] MEDS ORDERED: clopidogrel 300mg tablet PO ONE (13:50)
--- NOTE | 2019-05-31 14:21 | NUR ---
JAYCE, CRYPTOLOGIC SUPERVISOR STATES "LEAVE THE IN IN, MAY NEED IT AT [facility]".
[2019-05-31 15:00] VITALS: BP 160/57
--- NOTE | 2019-05-31 18:25 | NUR ---
JACQUARD LOOM CARD CHANGERmanager documentation: I have reviewed and agree with all interventions, assessments performed and documented by AMBREEN BEEBE.
[2019-06-01] MEDS ORDERED: clopidogrel 75mg tablet PO SCH (08:00)
== END 2019-05-31 17:12 | DRG 673 ==
LOC: ER 18:21 → PCU 3S 22:44 → CMPBEDREQ 05-23 19:34 → PCU 3S 05-27 18:15
PROVIDERS: ATTEND Internal Medicine Critical Care Medicine
PROC: 5A09357 Assistance with Respiratory Ventilation, Less than 24 Consecutive Hours, Continuous Positive Airway Pressure (ICD-10-PCS; 2019-05-21)
PROC: 5A09357 Assistance with Respiratory Ventilation, Less than 24 Consecutive Hours, Continuous Positive Airway Pressure (ICD-10-PCS; 2019-05-23)
PROC: 5A09357 Assistance with Respiratory Ventilation, Less than 24 Consecutive Hours, Continuous Positive Airway Pressure (ICD-10-PCS; 2019-05-24)
PROC: 5A09357 Assistance with Respiratory Ventilation, Less than 24 Consecutive Hours, Continuous Positive Airway Pressure (ICD-10-PCS; 2019-05-26)
PROC: 0JH63XZ Insertion of Tunneled Vascular Access Device into Chest Subcutaneous Tissue and Fascia, Percutaneous Approach (ICD-10-PCS; 2019-05-27)
PROC: B2141ZZ Fluoroscopy of Right Heart using Low Osmolar Contrast (ICD-10-PCS; 2019-05-27)
PROC: 5A09357 Assistance with Respiratory Ventilation, Less than 24 Consecutive Hours, Continuous Positive Airway Pressure (ICD-10-PCS; 2019-05-27)
PROC: 02H633Z Insertion of Infusion Device into Right Atrium, Percutaneous Approach (ICD-10-PCS; 2019-05-27)
PROC: B244ZZZ Ultrasonography of Right Heart (ICD-10-PCS; 2019-05-27)
PROC: 0DB68ZX Excision of Stomach, Via Natural or Artificial Opening Endoscopic, Diagnostic (ICD-10-PCS; 2019-05-27)
PROC: 5A09357 Assistance with Respiratory Ventilation, Less than 24 Consecutive Hours, Continuous Positive Airway Pressure (ICD-10-PCS; 2019-05-28)
PROC: 30233N1 Transfusion of Nonautologous Red Blood Cells into Peripheral Vein, Percutaneous Approach (ICD-10-PCS; 2019-05-28)
PROC: 5A09357 Assistance with Respiratory Ventilation, Less than 24 Consecutive Hours, Continuous Positive Airway Pressure (ICD-10-PCS; 2019-05-29)
PROC: 5A1D70Z Performance of Urinary Filtration, Intermittent, Less than 6 Hours Per Day (ICD-10-PCS; 2019-05-29)
PROC: 5A09357 Assistance with Respiratory Ventilation, Less than 24 Consecutive Hours, Continuous Positive Airway Pressure (ICD-10-PCS; principal; 2019-05-30)
PROC: 5A1D70Z Performance of Urinary Filtration, Intermittent, Less than 6 Hours Per Day (ICD-10-PCS; 2019-05-30)
DX: N17.9 Acute kidney failure, unspecified (principal); I50.33 Acute on chronic diastolic (congestive) heart failure; K29.71 Gastritis, unspecified, with bleeding; I13.2 Hypertensive heart and chronic kidney disease with heart failure and with stage 5 chronic kidney disease, or end stage renal disease; J96.10 Chronic respiratory failure, unspecified whether with hypoxia or hypercapnia; G93.40 Encephalopathy, unspecified; I48.92 Unspecified atrial flutter; J81.1 Chronic pulmonary edema; N18.5 Chronic kidney disease, stage 5; E11.22 Type 2 diabetes mellitus with diabetic chronic kidney disease; E03.9 Hypothyroidism, unspecified; E78.5 Hyperlipidemia, unspecified; E83.39 Other disorders of phosphorus metabolism; G47.33 Obstructive sleep apnea (adult) (pediatric); I25.10 Atherosclerotic heart disease of native coronary artery without angina pectoris; K20.9 Esophagitis, unspecified; J44.9 Chronic obstructive pulmonary disease, unspecified; K59.00 Constipation, unspecified; D50.0 Iron deficiency anemia secondary to blood loss (chronic); I48.0 Paroxysmal atrial fibrillation; E87.6 Hypokalemia; I34.0 Nonrheumatic mitral (valve) insufficiency; Z96.653 Presence of artificial knee joint, bilateral; K76.0 Fatty (change of) liver, not elsewhere classified; Z79.02 Long term (current) use of antithrombotics/antiplatelets; Z85.3 Personal history of malignant neoplasm of breast; Z87.891 Personal history of nicotine dependence; Z88.0 Allergy status to penicillin; Z88.1 Allergy status to other antibiotic agents; Z88.8 Allergy status to other drugs, medicaments and biological substances; Z79.899 Other long term (current) drug therapy; Z79.82 Long term (current) use of aspirin; Z79.890 Hormone replacement therapy; Z95.1 Presence of aortocoronary bypass graft; Z90.710 Acquired absence of both cervix and uterus; Z90.722 Acquired absence of ovaries, bilateral; Z95.5 Presence of coronary angioplasty implant and graft; Z99.81 Dependence on supplemental oxygen; Z79.4 Long term (current) use of insulin; Z79.01 Long term (current) use of anticoagulants
CPT/HCPCS: 36415; 36558; 36600; 43239; 71045; 76937; 77001; 80048; 80053; 80069; 81003; 82272; 82728; 82803; 82948; 83036; 83540; 83550; 83735; 83880; 84100; 84132; 84439; 84443; 84484; 85018; 85025; 85027; 85610; 85730; 86803; 86885; 86900; 86901; 86920; 87081; 87340; 88305; 88342; 90935; 93005; 93306; 94640; 94660; 94760; 96360; 97110; 97116; 97161; 97530; 99152; 99285; A9270; C1750; C1894; C9113; G0257; G0378; J0360; J0780; J1170; J1644; J1815; J1940; J2250; J2310; J2405; J3010; J3480; J7040; J7060; J7626; P9016; Q0163; Q4081

== ENCOUNTER 2019-06-29 03:13 | Outpatient (CLI) | payer MEDICARE ==
[~2019-06-29 03:13] MED LIST changes: -ACET600C5 PO; -CALC-1197 PO; -PANT-47 PO
== END 2019-06-29 23:59 | disposition home or self-care (01) ==
LOC: DIABETIC 03:13
PROVIDERS: ATTEND Family Medicine
DX: E11.69 Type 2 diabetes mellitus with other specified complication (principal)
CPT/HCPCS: G0108

== ENCOUNTER 2020-05-11 16:48 | Inpatient (IN) | payer MEDICARE ==
[2020-05-11] VITALS (14 sets, daily range): BP systolic 94–147; BP diastolic 22–49
[~2020-05-11] VITALS: Ht 165.1 cm; Wt 88.6 kg
[~2020-05-11 16:48] MED LIST changes: -ACET-812 PO; +ACYC400T PO; -ALLO100T PO; +ALLO100T15 PO; +AMIO200T27 PO; -AMIO200T61 PO; -ANAS1TAB10 PO; +ANAS1TAB24 PO; +APIX5TAB3 PO; +ASCO500C6 PO; -ASPI-1 PO; -ATRNS; -CHOL10002 PO; +CHOL100046 PO; -CLOP75TA15 PO; +CLOP75TA35 PO; +FENO145T25 PO; -FENO145T36 PO; -FERR325T28 PO; -FEXO180T94 PO; +FLO110IN PO; -FLUO15OI15 TOP; -FLUT100D2 INH; -FURO-150 PO; +FURO80TA3 PO; +HYDR-4070 PO; -HYDR100T27 PO; +INSU100I8 SQ; -INSU100V9 SQ; -LACT1CAP65 PO; +LANTUS SQ; -LEVO100T PO; +LEVO100T9 PO; +LORA-660 PO; -NIA500ERT PO; +NITR0.4T SL; -NITR0.4T51 SL; +OMEG1CAP13 PO; +PANT40TA4 PO; -POTA10TA19 PO; +POTA8TAB3 PO; -PROP10TA10 PO; -ROSU40TA PO; +ROSU40TA22 PO; +SPIR25TA5 PO; -UBID1CAP54 PO; +VERA240C3 PO; -VERA240T PO; -VITC500T PO; +calcium chloride 100 MG/1 ML inj IV ONE; +dextrose 50%-water 50ml dispensing syringe IV ONE; +epiNEPHrine 0.1mg/ml 10ml syringe ONE; +rocuronium 10mg/ml inj IV ONE; +sodium bicarbonate (8.4%) 1 mEq/ml syringe ONE
[2020-05-11] MEDS ORDERED: LIDOcaine 1%/PF 5ML 10 MG/ML VIAL ONE (16:51)
[2020-05-11] MEDS ORDERED: fentaNYL/PF 50MCG/1 ML 2ML syringe ONE (16:51)
[2020-05-11] MEDS ORDERED: heparin 1,000unit/ml 10ml vial 10 ML ONE (16:51)
[2020-05-11] MEDS ORDERED: aspirin 81mg tab.chew PO ONE (17:00)
--- NOTE | 2020-05-11 17:13 | NUR ---
PT CONDITION DETERIORATED QUICKLY WITH A HR 38, BP 64/36, GCS 6. MD AT BEDSIDE, UNABLE TO GAIN IV ACCESS. QUAD LUMEN CL RIGHT SC STARTED. BVM STARTED HIGH FLOW.
[2020-05-11] MEDS ORDERED: insulin regular, human U-100 3ml vial - multi-dose IV ONE (17:20)
[2020-05-11] MEDS ORDERED: insulin regular, human 10 units/0.1 ml syringe IV ONE (17:20)
--- NOTE | 2020-05-11 17:25 | NUR ---
IR AT BEDSIDE PLACING A TEMPORARY DIALYSIS CATHETER RIGHT GROIN. HR 48, BP 126/38, 100% NRB 10LPM
[2020-05-11 17:38] LABS: BASOPHILS % (AUTO) 0.3 % (0-1); EOSINOPHILS % (AUTO) 0 % (0-6)
[2020-05-11 17:40] LABS: LYMPHOCYTES # (AUTO) 0.9 X10'3 (1.1-4.8); MEAN CORPUSCULAR HEMOGLOBIN 32.3 PG (27.0-31.0); MEAN CORPUSCULAR HGB CONC 31.1 g/dL (33.0-36.5); MEAN CORPUSCULAR VOLUME 103.8 FL (78-98); MEAN PLATELET VOLUME 9.3 FL (7.4-10.4); MONOCYTES # (AUTO) 0.3 X10'3 (0-0.9); MONOCYTES % (AUTO) 2.3 % (2-12); NEUTROPHILS # (AUTO) 11.2 X10'3 (1.8-7.7); NEUTROPHILS % (AUTO) 90.4 % (42-75); PLATELET COUNT 180 X10'3 (140-440); RED BLOOD COUNT 2.08 X10'6 (4.20-5.60); RED CELL DISTRIBUTION WIDTH 18.5 % (11.5-14.5); WHITE BLOOD COUNT 12.4 X10'3 (4.5-11.0)
[2020-05-11 17:48] LABS: HEMATOCRIT 21.6 % (35.0-45.0); HEMOGLOBIN 6.7 g/dl (12.0-16.0)
[2020-05-11] MEDS ORDERED: heparin 1,000 units/ml 10ml inj HE ONE ×2 (17:50)
--- NOTE | 2020-05-11 17:50 | NUR ---
Patient arrived from ED with heart rate of 39-42, junctional rhythm noted, lactic acid 11.4, H/H 6.7/21.6, blood glucose 375. Discussed with Dr. Bunch and received orders for 1 unit blood, 1 L NS, BC x2, 1 gm cefepime, 1 gm Vanco, Hyperglycemic protocol, Renal diet. Patient minimally responsive, with irregular very shallow breaths. Will continue to monitor.
[2020-05-11 17:57] LABS: ALANINE AMINOTRANSFERASE 149 U/L (12-78); ALBUMIN 2.2 G/DL (3.4-5.0); ALBUMIN/GLOBULIN RATIO 0.8 (1.1-1.5); ALKALINE PHOSPHATASE 38 IU/L (46-116); ANION GAP 19 (8-16); ASPARTATE AMINO TRANSFERASE 91 U/L (10-37); BILIRUBIN,TOTAL 1.1 MG/DL (0.1-1.0); BLOOD UREA NITROGEN 124 MG/DL (7-18); BUN/CREATININE RATIO 15.5 (6.6-38.0); CALCIUM 9.9 MG/DL (8.5-10.1); CHLORIDE 91 MMOL/L (99-107); GLUCOSE 411 MG/DL (70-104); MAGNESIUM 2.7 MG/DL (1.5-2.4); SODIUM 129 MMOL/L (135-145); TOTAL CARBON DIOXIDE 18.9 MMOL/L (24-32); TOTAL PROTEIN 5.1 G/DL (6.4-8.2); eGFR 5 ML/MIN
[2020-05-11 18:01] LABS: POTASSIUM 6.7 MMOL/L (3.5-5.1)
[2020-05-11] MEDS ORDERED: NORepinephrine 8mg/ 250ml NS 250 ML IV ONE (18:06)
[2020-05-11] MEDS ORDERED: normal saline 1000ml 1,000 ML IV ONE (18:15)
[2020-05-11] MEDS ORDERED: vancomycin/NS 1 GM ADD-VANTAGE 250 ML IV ONE (18:15)
--- NOTE | 2020-05-11 18:15 | NUR ---
1718-bicarb given hr 39, sao2 87% bp 58/40
[2020-05-11] MEDS ORDERED: dextrose ORAL solution 15 GM/59 ML bottle PO PRN ×4 (18:20→19:45)
[2020-05-11] MEDS ORDERED: glucagon, human recombinant 1mg kit SUBCUT PRN ×2 (18:20→19:45)
[2020-05-11] MEDS ORDERED: dextrose 50%-water 50ml dispensing syringe IV PRN ×3 (18:20→19:45)
[2020-05-11] MEDS ORDERED: insulin Lispro (HumaLOG) vial - multi-dose SQ SCH ×2 (18:20→19:45)
[2020-05-11] MEDS ORDERED: MESSAGE TO PHARMACY PO ONE ×2 (18:20→19:45)
--- NOTE | 2020-05-11 18:22 | NUR ---
1722 10 UNITS INSULIN IV, 1ML EPI. HR 43, 100% BVM, BP 113/40. 1728 HR 44, RR 17, 100% RA, 126/38. 1729 CALCIUM CHLORIDE AND DEXTROSE 1 AMP EACH.
--- NOTE | 2020-05-11 18:24 | NUR ---
1745 EPI 1ML, REPORT TO ICU ELVA RN
--- NOTE | 2020-05-11 18:25 | NUR ---
Patient in room ICU 2039. I have received report from Norma CROOK and had the opportunity to ask questions and assume patient care.
[2020-05-11 18:26] LABS: NUCLEATED RED BLOOD CELLS 4 /100WBC (0-0); TOTAL CELLS COUNTED 100
[2020-05-11 18:28] LABS: ANISOCYTOSIS 2+; PLATELET ESTIMATE NORMAL; POIKILOCYTOSIS 1+
[2020-05-11 18:41] LABS: ABG BASE EXCESS -13.9 mmol/L (-2.0-2.0); ABG HCO3 14.1 mmol/L (22.0-26.0); ABG OXYGEN SATURATION 94.6 % (94-97); ABG PCO2 (T) 39.2 mmHg (32.0-45.0); ABG PO2 (T) 90.3 mmHg (75.0-100.0); ALLEN'S TEST POSITIVE; FCOHb 0.9 % (0.0-3.9); FLOW 6 L/min; FMetHb 0.3 % (0.0-1.5); FO2Hb 93.5 % (94-97); PATIENT TEMPERATURE 35.1; TOTAL HEMOGLOBIN 6.9 G/dl (12.0-16.0)
[2020-05-11 18:42] LABS: HEMOGLOBIN A1C 5.8 % (4.5-6.2)
[2020-05-11] MEDS ORDERED: calcium chloride 100 MG/1 ML inj IV ONE (18:48)
[2020-05-11 18:50] LABS: ALANINE AMINOTRANSFERASE 162 U/L (12-78); ALBUMIN 2.4 G/DL (3.4-5.0); ALBUMIN/GLOBULIN RATIO 0.8 (1.1-1.5); ALKALINE PHOSPHATASE 44 IU/L (46-116); ANION GAP 22 (8-16); ASPARTATE AMINO TRANSFERASE 109 U/L (10-37); BILIRUBIN,TOTAL 1.2 MG/DL (0.1-1.0); BLOOD UREA NITROGEN 127 MG/DL (7-18); BUN/CREATININE RATIO 15.5 (6.6-38.0); CALCIUM 11.5 MG/DL (8.5-10.1); CHLORIDE 92 MMOL/L (99-107); CREATININE 8.22 MG/DL (0.40-0.90); GLUCOSE 299 MG/DL (70-104); SODIUM 130 MMOL/L (135-145); TOTAL CARBON DIOXIDE 15.6 MMOL/L (24-32); TOTAL PROTEIN 5.5 G/DL (6.4-8.2); eGFR 5 ML/MIN
[2020-05-11 18:52] LABS: POTASSIUM 6.5 MMOL/L (3.5-5.1)
[2020-05-11 19:15] LABS: ABG BASE EXCESS -8.8 mmol/L (-2.0-2.0); ABG HCO3 19.7 mmol/L (22.0-26.0); ABG OXYGEN SATURATION 97.6 % (94-97); ABG PCO2 (T) 54.3 mmHg (32.0-45.0); ABG PO2 (T) 132.1 mmHg (75.0-100.0); FCOHb 0.8 % (0.0-3.9); FMetHb 0.3 % (0.0-1.5); FO2Hb 96.5 % (94-97); PATIENT TEMPERATURE 35.2; PEEP 5 cm H2O; RESPIRATORY RATE 16 b/min; TIDAL VOLUME 450 mL; TOTAL HEMOGLOBIN 7.6 G/dl (12.0-16.0)
[2020-05-11] MEDS ORDERED: midazolam 100mg in NS 100ml 100 ML IV PRN (19:18)
[2020-05-11] MEDS ORDERED: midazolam 2 mg/2 ml injection IV ONE (19:20)
[2020-05-11] MEDS ORDERED: ipratropium/albuterol 3ml nebule NEB PRN (19:20)
[2020-05-11] MEDS ORDERED: fentaNYL/PF 50MCG/1 ML 2ML syringe IV PRN (19:20)
--- NOTE | 2020-05-11 19:25 | NUR ---
pt was hypotensive, Bharti RN at bedside starting HD, received order for 1L NS fluid bolus which was infusing, attempting to externally pace pt with poor capture, pt became pulseless around 1840, cpr started, multiple rounds of epinephrin, calcium, and bicarb given ROSC achieved around 0. pt intubated by Dr. Culp with direct visualization and CO2 detector change noted. Art line also place by Dr. Culp. Pablo now at bedside and Levophd ordered for hypotension along with another fluid bolus 1L NS.
[2020-05-11] MEDS: budesonide 0.5mg/2ml UD nebule IH SCH (20:00)
--- NOTE | 2020-05-11 20:00 | NUR ---
Updated over the phone re: emergent dialysis, intubation and code blue; questions answered;
[2020-05-11] MEDS ORDERED: insulin glargine (Lantus) pen - multi-dose SQ SCH ×2 (21:00)
[2020-05-11] MEDS ORDERED: normal saline 1000ml 1,000 ML IVB ONE (22:36)
[2020-05-11] MEDS: dextrose 50%-water 50ml dispensing syringe IV PRN (23:08)
[2020-05-11] MEDS: ipratropium/albuterol 3ml nebule NEB SCH (23:19)
[2020-05-11] MEDS: FENTANYL-0.9 % NACL/PF 100 ML IV PRN (23:37)
[2020-05-11] MEDS: NORepinephrine 8mg/ 250ml NS 250 ML IV PRN (23:38)
[2020-05-11 23:47] LABS: EOSINOPHILS % (AUTO) 0.1 % (0-6); HEMOGLOBIN 10.1 g/dl (12.0-16.0); MONOCYTES # (AUTO) 1.3 X10'3 (0-0.9)
[2020-05-11 23:49] LABS: BASOPHILS % (AUTO) 0.1 % (0-1); HEMATOCRIT 31.9 % (35.0-45.0); LYMPHOCYTES # (AUTO) 0.6 X10'3 (1.1-4.8); LYMPHOCYTES % (AUTO) 2.6 % (21-51); MEAN CORPUSCULAR HEMOGLOBIN 30.5 PG (27.0-31.0); MEAN CORPUSCULAR HGB CONC 31.5 g/dL (33.0-36.5); MEAN PLATELET VOLUME 9.2 FL (7.4-10.4); MONOCYTES % (AUTO) 5.1 % (2-12); NEUTROPHILS # (AUTO) 22.8 X10'3 (1.8-7.7); NEUTROPHILS % (AUTO) 92.1 % (42-75); PLATELET COUNT 166 X10'3 (140-440); RED BLOOD COUNT 3.29 X10'6 (4.20-5.60); RED CELL DISTRIBUTION WIDTH 20.5 % (11.5-14.5); WHITE BLOOD COUNT 24.7 X10'3 (4.5-11.0)
[2020-05-11 23:53] LABS: ALBUMIN 2.2 G/DL (3.4-5.0); ANION GAP 19 (8-16); BLOOD UREA NITROGEN 56 MG/DL (7-18); BUN/CREATININE RATIO 13.2 (6.6-38.0); CALCIUM 8.9 MG/DL (8.5-10.1); CHLORIDE 101 MMOL/L (99-107); CREATININE 4.23 MG/DL (0.40-0.90); POTASSIUM 4.9 MMOL/L (3.5-5.1); SODIUM 137 MMOL/L (135-145); TOTAL CARBON DIOXIDE 16.9 MMOL/L (24-32); eGFR 10 ML/MIN
[2020-05-11 23:58] LABS: GLUCOSE 40 MG/DL (70-104)
[2020-05-12] VITALS (20 sets, daily range): BP systolic 74–155; BP diastolic 19–43
[2020-05-12] MEDS ORDERED: gelatin sponge, absorbable (Gelfoam-100 compressed) sponge TP ONE
[2020-05-12] MEDS: apixaban 5mg tablet PO SCH ×2 (00:15→12:03)
[2020-05-12] MEDS: famotidine/PF 10 mg/ml inj IV SCH ×2 (00:15→08:00)
[2020-05-12] MEDS ORDERED: sodium chloride inj. 154 MEQ in Dextrose 10%-water IV solution 961.5 ML IV SCH (02:25)
[2020-05-12 02:36] LABS: MONOCYTES # (AUTO) 0.5 X10'3 (0-0.9)
[2020-05-12 02:37] LABS: BASOPHILS % (AUTO) 0.1 % (0-1); EOSINOPHILS % (AUTO) 0.3 % (0-6); HEMATOCRIT 33.2 % (35.0-45.0); HEMOGLOBIN 10.5 g/dl (12.0-16.0); LYMPHOCYTES # (AUTO) 0.3 X10'3 (1.1-4.8); LYMPHOCYTES % (AUTO) 2.2 % (21-51); MEAN CORPUSCULAR HEMOGLOBIN 30.3 PG (27.0-31.0); MEAN CORPUSCULAR HGB CONC 31.6 g/dL (33.0-36.5); MEAN CORPUSCULAR VOLUME 95.9 FL (78-98); MEAN PLATELET VOLUME 9.1 FL (7.4-10.4); MONOCYTES % (AUTO) 3.2 % (2-12); NEUTROPHILS # (AUTO) 14.3 X10'3 (1.8-7.7); NEUTROPHILS % (AUTO) 94.2 % (42-75); PLATELET COUNT 180 X10'3 (140-440); RED BLOOD COUNT 3.46 X10'6 (4.20-5.60); RED CELL DISTRIBUTION WIDTH 20.5 % (11.5-14.5); WHITE BLOOD COUNT 15.2 X10'3 (4.5-11.0)
[2020-05-12 02:47] LABS: PARTIAL THROMBOPLASTIN TIME 39 SECONDS (22-32)
[2020-05-12 02:48] LABS: ALANINE AMINOTRANSFERASE 349 U/L (12-78); ALBUMIN 2.2 G/DL (3.4-5.0); ALBUMIN/GLOBULIN RATIO 0.8 (1.1-1.5); ALKALINE PHOSPHATASE 65 IU/L (46-116); ANION GAP 17 (8-16); ASPARTATE AMINO TRANSFERASE 949 U/L (10-37); BILIRUBIN,TOTAL 2.6 MG/DL (0.1-1.0); BLOOD UREA NITROGEN 65 MG/DL (7-18); BUN/CREATININE RATIO 13.6 (6.6-38.0); CALCIUM 8.5 MG/DL (8.5-10.1); CHLORIDE 101 MMOL/L (99-107); CREATININE 4.78 MG/DL (0.40-0.90); GLUCOSE 73 MG/DL (70-104); MAGNESIUM 1.9 MG/DL (1.5-2.4); PHOSPHORUS 6.9 MG/DL (2.3-4.5); SODIUM 137 MMOL/L (135-145); TOTAL CARBON DIOXIDE 18.9 MMOL/L (24-32); TOTAL PROTEIN 4.9 G/DL (6.4-8.2); eGFR 9 ML/MIN
[2020-05-12] MEDS: ipratropium/albuterol 3ml nebule NEB SCH ×5 (02:52→19:00)
[2020-05-12 03:05] LABS: ABG BASE EXCESS -9.9 mmol/L (-2.0-2.0); ABG HCO3 16.1 mmol/L (22.0-26.0); ABG OXYGEN SATURATION 91.5 % (94-97); ABG PCO2 (T) 35.8 mmHg (32.0-45.0); ABG PO2 (T) 68.6 mmHg (75.0-100.0); FCOHb 1.5 % (0.0-3.9); FMetHb 0.3 % (0.0-1.5); FO2Hb 89.9 % (94-97); RESPIRATORY RATE 20 b/min; TIDAL VOLUME 450 mL; TOTAL HEMOGLOBIN 11.2 G/dl (12.0-16.0)
[2020-05-12] MEDS: NORepinephrine 8mg/ 250ml NS 250 ML IV PRN ×2 (03:59→07:52)
--- NOTE | 2020-05-12 04:23 | NUR ---
pt continuing to do well, titrating levophed as needed to maintain a map greater than 60mmHg, pt responds to painful stimuli but does not follow commands at this time. pt's heart rate also remaining in the 60's to low 80's afib with a bundle branch block. will continue to monitor
--- NOTE | 2020-05-12 06:30 | NUR ---
Patient in room ICU 2039. I have received report from Klarissa CROOK and had the opportunity to ask questions and assume patient care.
--- NOTE | 2020-05-12 06:31 | NUR ---
Problems reprioritized. Patient report given, questions answered & plan of care reviewed with Sangeeta CROOK.
[2020-05-12] MEDS: FENTANYL-0.9 % NACL/PF 100 ML IV PRN (07:02)
[2020-05-12] MEDS: budesonide 0.5mg/2ml UD nebule IH SCH ×2 (07:06→20:00)
[2020-05-12] MEDS: dextrose 50%-water 50ml dispensing syringe IV PRN (07:42)
[2020-05-12] MEDS ORDERED: fenofibrate 145mg tablet PO SCH (08:00)
[2020-05-12] MEDS ORDERED: amiodarone 200mg tablet PO SCH (08:00)
[2020-05-12] MEDS ORDERED: anastrozole 1 MG tablet PO SCH (08:00)
[2020-05-12] MEDS ORDERED: omega-3 acid ethyl esters 1GM capsule PO SCH (08:00)
[2020-05-12] MEDS ORDERED: clopidogrel 75mg tablet PO SCH (08:00)
[2020-05-12] MEDS ORDERED: levoTHYROXINE 100mcg tablet PO SCH (08:00)
[2020-05-12] MEDS ORDERED: allopurinol 100mg tablet PO SCH (08:00)
[2020-05-12] MEDS ORDERED: Duosol 4k/NO Calcium 5,000 ML HE SCH (08:44)
[2020-05-12] MEDS ORDERED: sodium phosphate inj. 30 MMOL in normal saline 250ml IV soln 250 ML IV PRN (08:45)
[2020-05-12] MEDS ORDERED: calcium chloride inj. 1,000 MG in normal saline 100ml IV soln 100 ML IV PRN (08:45)
[2020-05-12] MEDS ORDERED: potassium Cl 20mEq/100mL bag 100 ML IV PRN (08:45)
[2020-05-12] MEDS ORDERED: magnesium 4gm in 100ml NS 100 ML IV PRN (08:45)
[2020-05-12] MEDS: vasopressin inj. 40 UNIT in normal saline 50ml IV soln 40 ML IV SCH ×2 (08:50→16:08)
[2020-05-12] MEDS: NORepinephrine 32 MG in Normal Saline 250ml IV soln IV PRN ×2 (08:53→16:21)
[2020-05-12] MEDS ORDERED: epiNEPHrine inj 5 MG, calcium chloride inj. 1,000 MG in normal saline 250ml IV soln 250 ML IV PRN (09:23)
[2020-05-12] MEDS ORDERED: sodium bicarbonate (8.4%) 1 mEq/ml syringe IV ONE ×3 (09:50→13:50)
[2020-05-12] MEDS ORDERED: [UNRECOGNIZED DRUG - OTHER] HE SCH (09:50)
[2020-05-12 09:55] LABS: ABG BASE EXCESS -22.5 mmol/L (-2.0-2.0); ABG HCO3 7.5 mmol/L (22.0-26.0); ABG OXYGEN SATURATION 90.9 % (94-97); ABG PCO2 (T) 32.5 mmHg (32.0-45.0); ABG PO2 (T) 88.7 mmHg (75.0-100.0); ALLEN'S TEST POSITIVE; FCOHb 2.4 % (0.0-3.9); FMetHb 0.2 % (0.0-1.5); FO2Hb 88.5 % (94-97); PATIENT TEMPERATURE 38.1; PEEP 5 cm H2O; RESPIRATORY RATE 20 b/min; TIDAL VOLUME 450 mL; TOTAL HEMOGLOBIN 10.6 G/dl (12.0-16.0)
[2020-05-12] MEDS ORDERED: sodium bicarbonate (8.4%) 1 mEq/ml syringe ONE ×8 (09:56→17:34)
[2020-05-12 11:20] LABS: ABG BASE EXCESS -23.2 mmol/L (-2.0-2.0); ABG HCO3 7.1 mmol/L (22.0-26.0); ABG OXYGEN SATURATION 92.5 % (94-97); ABG PCO2 (T) 33.4 mmHg (32.0-45.0); ABG PO2 (T) 97.7 mmHg (75.0-100.0); FCOHb 2.9 % (0.0-3.9); FMetHb 0.2 % (0.0-1.5); FO2Hb 89.6 % (94-97); PEEP 5 cm H2O; RESPIRATORY RATE 20 b/min; TIDAL VOLUME 450 mL; TOTAL HEMOGLOBIN 8.6 G/dl (12.0-16.0)
[2020-05-12 11:25] LABS: OXYGEN SATURATION (MIXED VEN) 74.2 % (60-80); PO2 MIXED VENOUS (TEMP COR) 59.5 mmHg (35-46)
[2020-05-12] MEDS: Duosol 4K/3 Ca (w/calcium) 5,000 ML HE SCH ×4 (11:43→17:15)
[2020-05-12 12:25] LABS: LYMPHOCYTES,BODY FLUID 4 %; MONOCYTES,BODY FLUID 10 %; NEUTROPHILS,BODY FLUID 86 %
[2020-05-12 12:26] LABS: BF RBC COUNT 238 /CU MM; BF WBC COUNT 22750 /CU MM (0-1000); BFAPPEAR BLOODY; BFCOLOR RED; BFVOLUME 25 ML
[2020-05-12 12:27] LABS: BF MESOTHELIAL CELLS OCCASIONAL
[2020-05-12] MEDS: DOPamine 400mg/D5W 250ml 250 ML IV SCH ×2 (12:31→16:05)
[2020-05-12] MEDS: epiNEPHrine inj 5 MG, calcium chloride inj. 1,000 MG in normal saline 250ml IV soln 235 ML IV PRN ×5 (12:33→18:33)
--- NOTE | 2020-05-12 12:39 | NUR ---
TAMMY/Sachin Consults: Pt intubated s/p code blue on admit as well as code blue this AM DX respiratory failure, lactic acidosis, T2DM A1C 5.8, hyperkalemia, and renal failure requiring TDC for HD per . Sachin 11; skin intact. Hx recently admit for fluid overload on PD 05/07/20. Pt receiving dextrose for low Glu w/ TF to start today per RN; also started on CVVH today per MD. MAP up to 73 at this time from 59 prior on pressors. EN recs below; will monitor for TF tolerance and additional protein needs on CVVH w/ intubation. Rec: 1. OGTF per MD using Vital High Protein at 85ml/hr goal; to provide 2040ml fluid, 1714ml free water, 2040kcals, and 179g protein. 2. additional free water per fork lift technician on CVVH 3. PALB Q /; daily wts 4. routine bowel care 5. monitor for EN tolerance 6. upon extubation; advance diet as medically indicated to renal Addendum: 05/12/20 at [address] Amended: Links added. Addendum: 05/12/20 at [address] Pt would benefit from Kelby mendoza w/ ALONDRA as well on CVVH; ARVIN galvan/patricia RN
[2020-05-12] MEDS ORDERED: sodium bicarbonate (8.4%) inj. 150 MEQ in dextrose 5%-water 1,000 ML IV SCH (12:49)
[2020-05-12] MEDS ORDERED: ceftazidime 1000mg in D5W 50ml 50 ML IV SCH (12:55)
[2020-05-12] MEDS ORDERED: cefTAZidime inj. 1 GM in normal saline 100ml IV soln 100 ML IV SCH (13:00)
[2020-05-12] MEDS ORDERED: dextrose ORAL solution 15 GM/59 ML bottle OGT PRN ×2 (13:08)
[2020-05-12] MEDS ORDERED: amiodarone 200mg tablet OGT SCH (13:09)
[2020-05-12] MEDS ORDERED: apixaban 5mg tablet OGT SCH (13:09)
[2020-05-12] MEDS ORDERED: fenofibrate 145mg tablet OGT SCH (13:09)
[2020-05-12] MEDS ORDERED: clopidogrel 75mg tablet OGT SCH (13:09)
[2020-05-12] MEDS ORDERED: levoTHYROXINE 100mcg tablet OGT SCH (13:09)
[2020-05-12] MEDS ORDERED: allopurinol 100mg tablet OGT SCH (13:10)
[2020-05-12] MEDS ORDERED: anastrozole 1 MG tablet OGT SCH (13:11)
[2020-05-12 13:28] LABS: HEMATOCRIT 26.1 % (35.0-45.0); HEMOGLOBIN 7.8 g/dl (12.0-16.0); MEAN CORPUSCULAR HEMOGLOBIN 30.1 PG (27.0-31.0); MEAN CORPUSCULAR HGB CONC 29.9 g/dL (33.0-36.5); MEAN CORPUSCULAR VOLUME 100.7 FL (78-98); MEAN PLATELET VOLUME 9.6 FL (7.4-10.4); PLATELET COUNT 85 X10'3 (140-440); RED CELL DISTRIBUTION WIDTH 22.4 % (11.5-14.5); WHITE BLOOD COUNT 16.9 X10'3 (4.5-11.0)
[2020-05-12 13:45] LABS: ALBUMIN 1.2 G/DL (3.4-5.0); ANION GAP 26 (8-16); BLOOD UREA NITROGEN 60 MG/DL (7-18); BUN/CREATININE RATIO 13.8 (6.6-38.0); CALCIUM 10.6 MG/DL (8.5-10.1); CHLORIDE 109 MMOL/L (99-107); CREATININE 4.34 MG/DL (0.40-0.90); GLUCOSE 108 MG/DL (70-104); MAGNESIUM 2.1 MG/DL (1.5-2.4); POTASSIUM 5.5 MMOL/L (3.5-5.1); SODIUM 150 MMOL/L (135-145); TOTAL CARBON DIOXIDE 15.3 MMOL/L (24-32); eGFR 10 ML/MIN
[2020-05-12 13:48] LABS: PHOSPHORUS 9.5 MG/DL (2.3-4.5)
[2020-05-12 14:20] LABS: MEAN CORPUSCULAR HGB CONC 30.7 g/dL (33.0-36.5)
[2020-05-12 14:21] LABS: HEMATOCRIT 24.5 % (35.0-45.0); HEMOGLOBIN 7.5 g/dl (12.0-16.0); MEAN CORPUSCULAR HEMOGLOBIN 30.7 PG (27.0-31.0); MEAN PLATELET VOLUME 9.2 FL (7.4-10.4); PLATELET COUNT 83 X10'3 (140-440); RED BLOOD COUNT 2.45 X10'6 (4.20-5.60); RED CELL DISTRIBUTION WIDTH 22.4 % (11.5-14.5); WHITE BLOOD COUNT 16.3 X10'3 (4.5-11.0)
[2020-05-12 14:30] LABS: ALBUMIN 1.1 G/DL (3.4-5.0); ANION GAP 25 (8-16); BLOOD UREA NITROGEN 56 MG/DL (7-18); BUN/CREATININE RATIO 13.8 (6.6-38.0); CALCIUM 10.8 MG/DL (8.5-10.1); CHLORIDE 109 MMOL/L (99-107); CREATININE 4.07 MG/DL (0.40-0.90); GLUCOSE 129 MG/DL (70-104); PHOSPHORUS 8.9 MG/DL (2.3-4.5); POTASSIUM 4.7 MMOL/L (3.5-5.1); SODIUM 153 MMOL/L (135-145); TOTAL CARBON DIOXIDE 18.6 MMOL/L (24-32); eGFR 11 ML/MIN
[2020-05-12] MEDS: hydrocortisone sod succ/PF 100mg/2ml inj. IV SCH ×2 (15:02→15:21)
[2020-05-12 15:19] LABS: HEMOGLOBIN 8.1 g/dl (12.0-16.0); MEAN CORPUSCULAR HEMOGLOBIN 30.3 PG (27.0-31.0)
[2020-05-12 15:21] LABS: MEAN CORPUSCULAR HGB CONC 30.1 g/dL (33.0-36.5); MEAN CORPUSCULAR VOLUME 100.9 FL (78-98); MEAN PLATELET VOLUME 9.1 FL (7.4-10.4); PLATELET COUNT 91 X10'3 (140-440); RED BLOOD COUNT 2.67 X10'6 (4.20-5.60); RED CELL DISTRIBUTION WIDTH 22.6 % (11.5-14.5); WHITE BLOOD COUNT 17.2 X10'3 (4.5-11.0)
[2020-05-12 15:26] LABS: ALBUMIN 1.2 G/DL (3.4-5.0); ANION GAP 24 (8-16); BLOOD UREA NITROGEN 53 MG/DL (7-18); BUN/CREATININE RATIO 13.3 (6.6-38.0); CALCIUM 11.7 MG/DL (8.5-10.1); CHLORIDE 110 MMOL/L (99-107); GLUCOSE 158 MG/DL (70-104); MAGNESIUM 2.1 MG/DL (1.5-2.4); PHOSPHORUS 8.3 MG/DL (2.3-4.5); SODIUM 149 MMOL/L (135-145); TOTAL CARBON DIOXIDE 15.1 MMOL/L (24-32); eGFR 11 ML/MIN
[2020-05-12 15:27] LABS: POTASSIUM 4.4 MMOL/L (3.5-5.1)
--- NOTE | 2020-05-12 15:56 | NUR ---
Obtained abg this morning and it showed a critically low bicarb. Two amps were ordered by dr. shah and as they were being given, patient went asystolic and cpr was initated as there was no official code status. 0950 with one round of cpr done x1, rosc achieved. Down to CT at 1030 until 1100 for abd pelvic scan, then back up to her room to begin cvvh. Patient had a low bg today as well at 0740 which was corrected with a full amp of dextrose per policy. Spoke to Dr. Shah afterwards about infusing D10 and possibly increasing it from 20 to help correct bg. Got ok to increase it based on how her blood sugars were responding as well as an order to begin tube feed. Per he wanted "everything done", and was informed that he may need to come to patient's bedside as lactic acid resulted at 22 and patient was maxed on epical, levophed, vasopressin, and was receiving an amp of bicarb nearly every 45 minutes to an hour. came to bedside and Dr. Shah explained the situation to him. He covered medications we were doing, ventilation, cvvh, prognosis, as well as potential options and outcomes. It was decided to gather family at bedside and allow them to grieve and say good bye to patient as soon as the son was able to arrive from [place]. Per Dr. Shah, ok to push an amp of bicarb until the son gets here to keep her going, however if her heart stops, do not do cpr and allow patient to pass.
[2020-05-12 16:05] LABS: HEMOGLOBIN 8.3 g/dl (12.0-16.0)
[2020-05-12 16:07] LABS: HEMATOCRIT 27.2 % (35.0-45.0); MEAN CORPUSCULAR HGB CONC 30.6 g/dL (33.0-36.5); MEAN CORPUSCULAR VOLUME 101.2 FL (78-98); MEAN PLATELET VOLUME 8.8 FL (7.4-10.4); PLATELET COUNT 95 X10'3 (140-440); RED BLOOD COUNT 2.69 X10'6 (4.20-5.60); RED CELL DISTRIBUTION WIDTH 22.1 % (11.5-14.5); WHITE BLOOD COUNT 15.8 X10'3 (4.5-11.0)
[2020-05-12 16:17] LABS: ALBUMIN 1.3 G/DL (3.4-5.0); ANION GAP 26 (8-16); BLOOD UREA NITROGEN 51 MG/DL (7-18); BUN/CREATININE RATIO 13.3 (6.6-38.0); CHLORIDE 111 MMOL/L (99-107); CREATININE 3.84 MG/DL (0.40-0.90); GLUCOSE 165 MG/DL (70-104); MAGNESIUM 2.1 MG/DL (1.5-2.4); PHOSPHORUS 7.9 MG/DL (2.3-4.5); SODIUM 151 MMOL/L (135-145); eGFR 11 ML/MIN
[2020-05-12 16:21] LABS: POTASSIUM 4.3 MMOL/L (3.5-5.1)
[2020-05-12 16:23] LABS: CALCIUM 12.1 MG/DL (8.5-10.1); TOTAL CARBON DIOXIDE 14.4 MMOL/L (24-32)
[2020-05-12] MEDS ORDERED: sodium bicarbonate (8.4%) 1 mEq/ml syringe IV PRN (17:40)
--- NOTE | 2020-05-12 18:18 | NUR ---
Patient is a member of [employer] and her family would like for them to handle the cremation and transportation.
--- NOTE | 2020-05-12 18:19 | NUR ---
Problems reprioritized. Patient report given, questions answered & plan of care reviewed with Rosa CROOK.
--- NOTE | 2020-05-12 18:26 | NUR ---
Patient in room ICU 2039. I have received report from Sangeeta CROOK and had the opportunity to ask questions and assume patient care. CVVH running. Family at bedside, waiting for her son to arrive.
--- NOTE | 2020-05-12 18:38 | NUR ---
Son now at bedside. Awaiting comfort Care orders.
--- NOTE | 2020-05-12 19:09 | NUR ---
Family ready. CVVH stopped and blood returned at 1850. Pt extubated by RT at 1853. Medications Discontinued. Son and Daughter at bedside. RN IS TO DOCUMENT YES TO ALL APPLICABLE AREAS Pronouncement of : Kenna Roberts RN 1. Time Physician Notified: 1909 2. Date of : 05/12/20 3. Time of : 1907 4. DNR/Withdraw life support documented: Yes 5. Monitor strip has been placed on chart: Yes 6. Assessment process is of one-minute duration and includes following criteria: a) Patient is unresponsive to all stimuli: Yes b) Pupils fixed and non-reactive: Yes c) Auscultation of precordium reveals absence of heart tones: Yes d) Auscultation of lungs reveals absence of breath sounds: Yes e) Absence of blood pressure / all vital signs: Yes f) QRS complexes are not present on monitor / EKG strip: Yes g) Pacer spikes without capture: N/A
[2020-05-12] MEDS ORDERED: mineral oil/petrolatum ophthal oint EACHEYE SCH (20:00)
--- NOTE | 2020-05-12 22:59 | NUR ---
Pt taken at 2252 by [facility] per family request. Family had all Pt belongings.
== END 2020-05-12 19:08 | disposition expired | DRG 871 ==
LOC: ER 16:48 → UNDOADMIN 18:21 → ICU 2S 18:21
PROVIDERS: ADMIT Internal Medicine Critical Care Medicine; ATTEND Internal Medicine Critical Care Medicine
PROC: 5A1935Z Respiratory Ventilation, Less than 24 Consecutive Hours (ICD-10-PCS; principal; 2020-05-11)
PROC: 0BH17EZ Insertion of Endotracheal Airway into Trachea, Via Natural or Artificial Opening (ICD-10-PCS; 2020-05-11)
PROC: 30233N1 Transfusion of Nonautologous Red Blood Cells into Peripheral Vein, Percutaneous Approach (ICD-10-PCS; 2020-05-11)
PROC: 02H633Z Insertion of Infusion Device into Right Atrium, Percutaneous Approach (ICD-10-PCS; 2020-05-11)
PROC: 06HY33Z Insertion of Infusion Device into Lower Vein, Percutaneous Approach (ICD-10-PCS; 2020-05-11)
PROC: B54BZZA Ultrasonography of Right Lower Extremity Veins, Guidance (ICD-10-PCS; 2020-05-11)
PROC: 5A1D70Z Performance of Urinary Filtration, Intermittent, Less than 6 Hours Per Day (ICD-10-PCS; 2020-05-11)
PROC: 5A12012 Performance of Cardiac Output, Single, Manual (ICD-10-PCS; 2020-05-11)
PROC: 04HY32Z Insertion of Monitoring Device into Lower Artery, Percutaneous Approach (ICD-10-PCS; 2020-05-11)
DX: A41.9 Sepsis, unspecified organism (principal); J96.00 Acute respiratory failure, unspecified whether with hypoxia or hypercapnia; K65.9 Peritonitis, unspecified; N18.6 End stage renal disease; R65.21 Severe sepsis with septic shock; E87.2 Acidosis; I13.2 Hypertensive heart and chronic kidney disease with heart failure and with stage 5 chronic kidney disease, or end stage renal disease; N17.9 Acute kidney failure, unspecified; E03.9 Hypothyroidism, unspecified; E11.22 Type 2 diabetes mellitus with diabetic chronic kidney disease; E87.5 Hyperkalemia; I25.10 Atherosclerotic heart disease of native coronary artery without angina pectoris; I46.8 Cardiac arrest due to other underlying condition; I48.91 Unspecified atrial fibrillation; I50.9 Heart failure, unspecified; J45.909 Unspecified asthma, uncomplicated; Z51.5 Encounter for palliative care; Z85.3 Personal history of malignant neoplasm of breast; Z95.5 Presence of coronary angioplasty implant and graft; Z99.2 Dependence on renal dialysis; Z88.0 Allergy status to penicillin; Z88.8 Allergy status to other drugs, medicaments and biological substances
CPT/HCPCS: 36415; 36430; 36556; 36600; 71045; 74176; 76937; 80048; 80053; 80069; 82140; 82330; 82803; 82810; 82948; 83036; 83605; 83735; 84100; 84145; 84484; 85007; 85018; 85025; 85027; 85610; 85730; 86885; 86900; 86901; 86920; 87040; 87070; 87075; 87077; 87081; 87186; 89051; 93005; 94002; 94003; 94640; 94760; 99285; A9270; C1751; C1769; C1894; E1594; G0378; J0171; J0713; J1265; J1644; J1720; J1815; J2150; J3010; J3370; J3490; J7030; J7050; J7131; J7626; P9016